=== PATIENT | female | born 1995 | race Caucasian/White ===

== ENCOUNTER 2019-11-21 10:37 | Emergency (ER) | payer SELFPAY ==
[2019-11-21 10:52] VITALS: BMI 28.3
[2019-11-21 10:56] VITALS: BP 149/98; PULSE 118; RESP 16; TEMP 37.8; O2SAT 99
[2019-11-21 12:39] VITALS: BP 141/58; PULSE 94; RESP 14; O2SAT 100
--- NOTE | 2019-11-21 12:39 | W.ED.GENADLT ---
HPI - General Adult General: Chief complaint: General Medical Stated complaint: ASKING FRO COVID AND STD TEST Time Seen by Provider: 11/21/19 11:19 Source: patient Mode of arrival: ambulatory Limitations: no limitations History of Present Illness: HPI narrative: low grade fever; anxiety; wanting tested for covid19 and HIV Review of Systems General: Reports: 10 or more systems reviewed and unremarkable except in HPI and below Const: Reports: fever(s) (low grade) and fatigue Psych: Reports: panic attacks, sleeping less and change in appetite REPLACED BY [facility] Female Reproductive History: Date of last menstrual period: 10/16/19 Physical Exam Const: COMMON NORMALS: no acute distress, patient oriented x3, no limitations and alert GENERAL APPEARANCE: cooperative and comfortable ORIENTATION/CONSCIOUSNESS: Yes awake, Yes oriented to person, Yes oriented to place and Yes oriented to time HENMT: COMMON NORMALS: normocephalic, atraumatic, external ears normal, EAC's normal, TM's normal bilaterally and Normal external nose present HEAD & SCALP: normal to inspection, normocephalic and atraumatic FACE & SINUS: normal facial exam, sinuses nontender and face symmetric NOSE: Normal external nose present, Normal nares present and No nasal discharge present EXTERNAL EAR: Yes external ears normal EXTERNAL AUDITORY CANAL: EAC's normal TYMPANIC MEMBRANE: TM's normal bilaterally MOUTH: Normal oral and palatal mucosa present, lip normal and tongue normal THROAT: posterior oropharynx normal, tonsils normal and uvula midline Eye: COMMON NORMALS: Equal, round and reactive pupils present, EOMs intact bilaterally and conjunctivae normal GENERAL EYE: appearance normal, both eyes and all related structures and normal light reflex EYELID: eyelids normal CONJUNCTIVA: Yes conjunctivae normal PUPIL: Yes Equal, round and reactive pupils present EOM: Yes EOM abnormal DIRECT OPHTHALMOSCOPY: Yes normal light reflex Neck/C-Spine: COMMON NORMALS: full ROM, no lymphadenopathy, supple, no meningeal signs, no JVD and Thyroid normal GENERAL: Yes normal visual inspection THYROID: Thyroid normal CERVICAL SPINE: Yes cervical ROM normal and Yes normal cervical lordosis Lymph: LYMPHATIC: no lymphadenopathy noted Chest: COMMONS NORMALS: normal inspection of the chest and normal palpation of entire chest wall Resp: COMMON NORMALS: normal respiratory effort, No retractions and clear to auscultation bilaterally AUSCULTATION: clear to auscultation bilaterally Cardio: COMMON NORMALS: no JVD, regular rate, regular rhythm, S1 normal heart sound present, S2 normal heart sound present, No gallops present (Cardio), No clicks present (Cardio), No murmurs present (Cardio), No rub (Cardio) and Peripheral pulses 2+ throughout RATE: regular rate RHYTHM: regular rhythm HEART SOUNDS: S1 normal heart sound present and S2 normal heart sound present PERIPHERAL PULSES: Peripheral pulses 2+ throughout GI: COMMON NORMALS: Normal to inspection, nondistended, normoactive bowel sounds present, Soft to palpation, non-tender and no masses PALPATION: Yes Soft to palpation : COMMON NORMALS: Yes no CVA tenderness and Yes normal external appearance BLADDER/KIDNEY EXAM: Yes no CVA tenderness Back/Pelvis: COMMON NORMALS: no CVA tenderness, thoracic and lumbar spine normal to inspection, no thoracic nor lumbar tenderness and thoraco-lumbar ROM normal Extremity: COMMON NORMALS: normal to inspection, full ROM, capillary refill normal, no joint enlargement, no clubbing, cyanosis or edema, no calf tenderness and no pedal edema GENERAL: Yes normal exam except as noted Neuro: COMMON NORMALS: patient oriented x3, moves all extremities, no focal motor deficits, no sensory deficits noted and gait normal SENSORIUM/ORIENTATION: Yes alert, Yes oriented to person, Yes oriented to place and Yes oriented to time MENINGEAL SIGNS: Yes no meningeal signs Psych: COMMON NORMALS: mental status grossly normal, Normal thought process present, cooperative, normal affect, speech normal and activity/motor behavior normal SPEECH: Yes normal speech THOUGHT PROCESS: Normal thought process present Skin: COMMON NORMALS: no rashes or lesions noted, no wounds and turgor normal GENERAL SKIN EXAM: no rashes or lesions noted and turgor normal Course ED course: Pt presents and is notable anxious. She has been researching on the internet and was around a friend who's mother is being tested for covid19 after being in [place]. Pt has had a low grade fever and sore throat. She also is fearful that she may have HIV since she has similar symptoms per what she has read on the internet. We discussed thoroughly that she is not high risk for HIV and that an ER is not where she should get tested. She will be going to the health dept for further testing. Will test for covid due to possible exposure with low grade fever and sore throat however. Reevaluation(s): Reevaluation #1: COVID send off; follow up with health dept for further std checking. Strep negative. Self quarantine until results of covid screening are back. [facility] follow up for anxiety medication evaluation. Time: 13:47 Vital Signs: Vital signs: Vital Signs Temperature 100.0 F H 11/21/19 10:56 Pulse Rate 94 11/21/19 12:39 Respiratory Rate 14 11/21/19 12:39 Blood Pressure 141/58 11/21/19 12:39 Pulse Oximetry 100 11/21/19 12:39 MDM - General Adult Lab Data: Labs: Lab Results 11/21/19 Range/Units 12:35 Group A Strep Rapi d Negative (Negative) Discharge Plan Discharge Prescriptions: No Action No Known Home Medications RF: 0 Coding Level of Care Code ED Explosives Handler for Nareshg Fwd Exam Comprehensive
[2019-11-21 12:50] LABS: Rapid Strep A Test Negative (Negative)
[2019-11-21 13:58] VITALS: BP 126/69; PULSE 93; RESP 16; O2SAT 98
[2019-11-23 07:46] LABS: Coronavirus Lab Test PTC NOT DETECTED
--- NOTE | 2019-11-23 15:14 | PC.NURSE ---
Contacted pt regarding her negative COVID result.
== END 2019-11-21 14:01 | disposition home or self-care (01) ==
PROVIDERS: Emergency Provider Nurse Practitioner Family
DX: R50.9 Fever, unspecified (principal); F41.9 Anxiety disorder, unspecified
CPT/HCPCS: 12345; 87081; 87635; 87880; 99282

== ENCOUNTER 2020-08-30 23:50 | Inpatient (IN) | payer MEDICAID, SELFPAY ==
[2020-08-31] VITALS (29 sets, daily range): BP systolic 108–154; BP diastolic 52–80; PULSE 68–90; RESP 15–18; TEMP 36.2–37.2; O2SAT 96–100; BMI 34.4
--- NOTE | 2020-08-31 00:29 | P.HP_ITS ---
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 She is a scheduled repeat . Her was scheduled for later this day at 7:00 AM. Approximately an hour prior to arrival to hospital, the patient believes that her water broke. As result she came into the hospital. Upon arrival she was found to have grossly ruptured membranes. She was also found to be dilated to 1 cm and having contractions. As result a decision was made to proceed with a section. Her has been otherwise unremarkable. Her blood type is a positive. She was found to be antibody positive for non clinically significant antibodies. On her first glucose screen she was 153, but she passed her 3-hour glucose screen. She was found to be group B strep positive. She is also rubella immune. She received her Tdap shot. And she is Covid negative. She signed a release form to have a tubal performed, but prior to the procedure she elected not to have it done. She was unsure if she really wanted to have permanent sterilization. Present Details Date of Last Menstrual Period: 10/16/19 Calculated Date of Delivery: 07/22/20 Gestational Age Based on Last Menstrual Period: 45 Review of Systems General: Reports: 10 or more systems reviewed and unremarkable except in HPI and below Const: Reports: fatigue; Denies: fever(s) Eyes: Denies: change in vision Card: Denies: chest pain GI: Reports: heartburn Musc: Reports: back pain Douglas/Lymph: Denies: easy bruising Medications/Allergies Home Medications Medication Instructions Recorded Confirmed Last Taken Type No Known Home Medications 11/21/19 11/21/19 Unknown History Allergies Allergy/AdvReac Type Severity Reaction Status Date / Time No Known Allergies Allergy Verified 11/21/19 10:58 Vitals/I&O/Wt Last Vital Signs Pulse 82 08/31/20 00:12 BP 132/67 08/31/20 00:12 Physical Exam Const: COMMON NORMALS: patient oriented x3 and alert HENMT: COMMON NORMALS: moist oral mucous membranes HEAD & SCALP: normal to inspection Chest: COMMONS NORMALS: normal inspection of the chest Resp: COMMON NORMALS: clear to auscultation bilaterally AUSCULTATION: clear to auscultation bilaterally Cardio: COMMON NORMALS: regular rate and regular rhythm RATE: regular rate RHYTHM: regular rhythm GI: INSPECTION: Yes normal to inspection and Yes other (Gravid) Extremity: COMMON NORMALS: normal to inspection GENERAL: Yes edema (Trace) Neuro: COMMON NORMALS: patient oriented x3, moves all extremities and no sensory deficits noted SENSORIUM/ORIENTATION: Yes alert Psych: COMMON NORMALS: mental status grossly normal Skin: COMMON NORMALS: no rashes or lesions noted GENERAL SKIN EXAM: no rashes or lesions noted A&P Assessment and plan (1) 39 weeks gestation of : We will proceed with a repeat section. We once again discussed the risks of the including risk of bleeding, infection, and damage to intra-abdominal organs. Dr. Gordon will be the patient's lead electrician. The on- call lead electrician is Dr. Salvador. He will be contacted if the infant has any troubles. Otherwise he can see the infant later in the morning. Status: Acute (2) Previous section: Status: Acute (3) Spontaneous rupture of membranes: Status: Acute (4) Group beta Strep positive: Status: Acute Attestations Medical Necessity Statement*: I anticipate routine and post C- section care. Coding Level of Care Code Acute Hospitalist Medical Director for Chg Fwd Diagnoses 39 weeks gestation of Z3A.39 Previous section Z98.891 Spontaneous rupture of membranes Group beta Strep positive B95.1
[2020-08-31] MEDS: lactated ringers 1,000 ML 999 ML IV (00:30)
[2020-08-31] MEDS: famotidine 20 mg/2 mL INJ IVP (00:31)
[2020-08-31] MEDS: metoclopramide 5 mg/mL SDV 2 mL 10 MG IVP (00:31)
[2020-08-31] MEDS: lactated ringers 1,000 ML 125 ML IV (00:31)
[2020-08-31] MEDS: citric acid-sodium citrate 30 mL UDC PO (00:31)
[2020-08-31 00:51] LABS: Hematocrit 33.7 % (37.0-47.0); Hemoglobin 11.3 g/dL (11.5-15.3); Mean Corpuscular HGB Conc 33.5 g/dL (30.0-36.0); Mean Corpuscular Hemoglobin 29.5 pg (28.0-34.0); Mean Platelet Volume 12.6 fL (7.4-10.4); Platelet Count 241 10^3/cmm (130-400); Red Blood Count 3.83 10^6/uL (4.1-5.3); Red Cell Distribution Width 13.5 % (12.1-15.1); White Blood Count 13.7 10^3/uL (4.0-10.0)
--- NOTE | 2020-08-31 01:27 | P.ANESUD_ITS ---
Pre-Anesthetic Update Pre-Anesthetic Assessment: Date of Surgery/Procedure: 08/31/20 Preop Aaliyah gnosis: IUP Any changes to Pre-Anesthetic Assessment?: No Last Intake: 1999 Labs Last 48hrs: Laboratory Results - last 48 hr 08/31/20 00:08 WBC 13.7 H RBC 3.83 L Hgb 11.3 L Hct 33.7 L MCV 88.0 MCH 29.5 MCHC 33.5 RDW 13.5 Plt Count 241 MPV 12.6 H Vitals: Pulse Rate 82 08/31/20 00:12 Blood Pressure 132/67 08/31/20 00:12 Exam: Pre-Anes Outpt Exam: alert, oriented x 3, clear to auscultation bilat erally and regular rate & rhythm Other Pertinent Information: Other Pertinent Information: Plan SAB, ASA IIE. Cardiac Studies: No Data to Display
--- NOTE | 2020-08-31 02:04 | P.OP_ITS ---
Operative Report Date of procedure: August 31, 2020 Pre-op Diagnosis: 39-week female with spontaneous rupture membranes and history of Post-op diagnosis: same Procedure Done: Repeat lower transverse section Specimens removed/disposition: 1. Healthy-appearing male with a weight of 7 pounds 1 ounce and Apgars of 8 and 8 2. Placenta with a three-vessel cord delivered intact Pathology: none sent Anesthesia: Other (Spinal) Estimated blood loss (mL): 500 Complications: None Condition: stable Disposition: floor (OB) Brief History: Refer to history and physical Procedure: The patient was brought back to the operating room where she was prepped and draped in usual sterile fashion. Anesthesia was found to be ad equate. A lower transverse skin incision was then made with a #10 blade. I then dissected down to the underlying subcutaneous tissue until arriving at the prerectal fascia. The fascia was then nicked with the scalpel bilaterally. The fascial incisions were then carried laterally with Ho scissors. Attention was then turned to the superior aspect of the incision which was grasped with fifi s and tented up away from the underlying rectus abdominis muscles. The muscles were then dissected away from the fascia manually, and later with Oh scissors. Attention was then turned to the inferior aspect of the incision, and the fascia was dissected away from the underlying muscle in similar fashion. The rectus abdominis muscles were then spread manually. The peritoneum was entered manually. Excellent visualization of the uterus was noted. A lower transverse uterine incision was then made with a #10 blade. Upon arriving at the intrauterine cavity, the uterine incision was then extended manually. The infant was noted to be in vertex position. The baby was delivered without difficulty. After delivery of the head, the mouth and nose were suctioned at the site of the incision. There was no meconium. There was a body cord x1. The remainder of the body was then delivered and placed on the abdomen. The cord was cut and clamped. The baby was then handed to the waiting nurse. The placenta was removed intact. The uterus was externalized. The intrauterine cavity was cleansed of any remaining debris. The uterine incision was reapproximated in 2 layers. The first layer was performed with 0 chromic in a running locked stitch. The second layer was an imbricating stitch also using 0 chromic. The uterus was replaced into the abdomen. The peritoneum was then irrigated with warm saline. I reexamined the uterine incision and found it to be hemostatic. The rectus abdominis muscles were then reapproximated using 0 chromic in a running stitch. The fascia was then reapproximated using 0 Vicryl in running stitch. The subcutaneous tissue was reapproximated using 0 chromic in a running stitch. The skin was reapproximated using danelle. A sterile dressing was placed. All counts were correct x2. Both the mother and baby were in stable condition.
--- NOTE | 2020-08-31 02:05 | P.PCN_ITS ---
PACU note PACU note: VSS, Good respiratory effort, report to GEAR ROLLER Post-Anesthesia Exam: awake
--- NOTE | 2020-08-31 02:05 | PM.PACU ---
PACU note PACU note: VSS, Good respiratory effort, report to SPRING INSPECTOR Post-Anesthesia Exam: awake
[2020-08-31] MEDS: ketorolac 30 mg/mL INJ IVP ×3 (03:01→17:18)
[2020-08-31] MEDS: ondansetron 2 mg/ML SDV 2 mL 4 MG IVP (03:01)
[2020-08-31] MEDS: promethazine 25 mg/mL SDV 1 mL IM (03:49)
--- NOTE | 2020-08-31 09:04 | PC.SOCIAL ---
Envelope Maker called OB Dept, spoke to Rachelle, states patient doesn't have SS needs at this time. Will see patient if anything changes.
[2020-08-31] MEDS: docusate sodium 100 mg Capsule PO ×2 (10:00→17:19)
[2020-08-31] MEDS: ferrous sulfate EC 325 mg Tablet PO ×2 (10:00→17:19)
--- NOTE | 2020-08-31 13:41 | PC.NURSE ---
PATIENT STATES SHE PASSED GAS.
[2020-08-31 16:05] LABS: Hematocrit 37.5 % (37.0-47.0); Hemoglobin 12.1 g/dL (11.5-15.3); Mean Corpuscular HGB Conc 32.3 g/dL (30.0-36.0); Mean Corpuscular Hemoglobin 28.7 pg (28.0-34.0); Mean Corpuscular Volume 88.9 fL (81-99); Mean Platelet Volume 12.8 fL (7.4-10.4); Platelet Count 240 10^3/cmm (130-400); Red Blood Count 4.22 10^6/uL (4.1-5.3); Red Cell Distribution Width 13.6 % (12.1-15.1); White Blood Count 20.1 10^3/uL (4.0-10.0)
[2020-08-31] MEDS: ibuprofen 800 mg tablet PO (21:20)
[2020-09-01 03:30] VITALS: BP 110/67; PULSE 93; RESP 17; TEMP 37; O2SAT 97
[2020-09-01] MEDS: prenatal vitamin Capsule 1 CAP PO (07:32)
[2020-09-01] MEDS: ferrous sulfate EC 325 mg Tablet PO ×2 (07:32→17:09)
[2020-09-01] MEDS: ibuprofen 800 mg tablet PO ×3 (07:33→21:01)
[2020-09-01] MEDS: docusate sodium 100 mg Capsule PO ×2 (07:33→17:09)
[2020-09-01] MEDS: HYDROcodone-acetaminophen 5-325 mg Tablet PO ×3 (07:33→23:09)
[2020-09-01 10:00] VITALS: BP 99/68; PULSE 90; RESP 16; TEMP 36.7; O2SAT 99
[2020-09-01 16:13] VITALS: BP 125/82; PULSE 92; RESP 17; TEMP 36.8
[2020-09-01 21:00] VITALS: BP 124/80; PULSE 72; RESP 16; TEMP 36.8
[2020-09-01 23:56] VITALS: BP 124/80; PULSE 72; RESP 16; TEMP 36.8
== END 2020-09-01 23:57 | disposition home or self-care (01) | DRG 788 ==
PROVIDERS: Admitting Provider Family Medicine; PCP Family Medicine; Visit Provider Family Medicine
PROC: 10D00Z1 Extraction of Products of Conception, Low, Open Approach (ICD-10-PCS; CPT 59514; principal; 2020-08-31 01:00)
DX: O34.211 Maternal care for low transverse scar from previous cesarean delivery (principal); Z3A.39 39 weeks gestation of pregnancy; Z37.0 Single live birth; Z87.891 Personal history of nicotine dependence; O99.824 Streptococcus B carrier state complicating childbirth; O69.1XX0 Labor and delivery complicated by cord around neck, with compression, not applicable or unspecified; O99.344 Other mental disorders complicating childbirth; F41.9 Anxiety disorder, unspecified
CPT/HCPCS: 12345; 36415; 59025; 85027; 96372; 98960; 99211; J0690; J1885; J2274; J2405; J2550; J2765; J3490

== ENCOUNTER 2021-04-17 09:06 | Emergency (ER) | payer MEDICAID, SELFPAY ==
[2021-04-17 09:11] VITALS: BP 131/109; PULSE 92; RESP 20; TEMP 36.7; O2SAT 99; BMI 31.2
--- NOTE | 2021-04-17 09:17 | ED_ITS ---
HPI - Abdominal Pain General: Chief Complaint: Abdominal Pain Stated Complaint: LEFT BACK/FLANK PAIN Time Seen by Provider: 04/17/21 09:10 History of Present Illness: HPI narrative: 25-year-old female presents emergency room complaining of left flank pain that began suddenly this morning. She woke up this morning felt the urge to urinate and had severe left flank pain she was able to urinate did not notice any hematuria sometime after that the flank pain resolved and she has very little discomfort now. She had some nausea with it but no vomiting or diarrhea. Nurses note states she was tearful in the triage but when I went seen the patient the pain at Burdi much completely resolved and she did not have any real discomfort until I did Oscar's punch on her left side that was only mild pain at this time. She has no other symptoms no history of fever sweats chills no history of previous stones or pyelonephritis. She denies past potential for being . She denies any history of gynecological issues. MD elicited complaint: flank pain Pertinent past history: none Onset (ago): hour(s) Pain Consistency: intermittent and now resolved Location: L flank Severity: severe Quality: stabbing Radiation: none Migration to: no migration Exacerbating factors: nothing Relieving factors: nothing Associated Symptoms: Denies anorexia, belching, bloating, change in bowel habits, change in stool character, chills, coffee ground emesis, constipation, GI cramping, diarrhea, dyspepsia, dysuria, excessive flatus, fever(s), heartburn, hematochezia, hematuria, hematemesis, fecal incontinence, loose stools, melena, nausea, poor appetite, syncope and vomiting Related Data: Date of Last Menstrual Period: 03/18/21 Review of Systems Const: Denies: fever(s) or chills ENMT: Denies: throat pain, ear or mastoid pain, nasal discharge or nasal congestion Card: Denies: syncope Resp: Denies: dyspnea, productive cough or non-productive cough GI: Denies: nausea, vomiting, hematemesis, coffee ground emesis, heartburn, diarrhea, constipation, bloating, GI cramping, belching, excessive flatus, fecal incontinence, change in bowel habits, change in stool character, hematochezia or melena : Denies: dysuria or hematuria Skin/Breast: Denies: rash or pruritus [facility] ED Female Reproductive History: Date of last menstrual period: 03/18/21 Physical Exam Const: COMMON NORMALS: no acute distress GENERAL APPEARANCE: cooperative and comfortable ORIENTATION/CONSCIOUSNESS: Yes awake, Yes oriented to person, Yes oriented to place and Yes oriented to time HENMT: COMMON NORMALS: normocephalic, atraumatic and hearing grossly normal bilaterally HEAD & SCALP: normocephalic and atraumatic Resp: COMMON NORMALS: normal respiratory effort, No retractions, No use of accessory muscles and clear to auscultation bilaterally AUSCULTATION: clear to auscultation bilaterally Cardio: COMMON NORMALS: regular rate, regular rhythm and No murmurs present (Cardio) RATE: regular rate RHYTHM: regular rhythm GI: COMMON NORMALS: Soft to palpation and No hepatosplenomegaly present AUSCULTATION: Yes normoactive bowel sounds PALPATION: Yes Soft to palpation, No Tenderness to palpation present (GI), No Guarding due to palpation present (GI) and Yes No hepatosplenomegaly present : BLADDER/KIDNEY EXAM: Yes CVA tenderness Back/Pelvis: GENERAL BACK: Yes CVA tenderness CVA tenderness: left Extremity: COMMON NORMALS: normal to inspection, capillary refill normal, no clubbing, cyanosis or edema, no calf tenderness and no pedal edema Neuro: SENSORIUM/ORIENTATION: Yes oriented to person, Yes oriented to place and Yes oriented to time Skin: COMMON NORMALS: no rashes or lesions noted GENERAL SKIN EXAM: no rashes or lesions noted Course Vital Signs: Vital signs: Vital Signs Temperature 98.1 F 04/17/21 09:11 Pulse Rate 72 04/17/21 11:01 Respiratory Rate 15 04/17/21 11:01 Blood Pressure 122/71 04/17/21 11:01 Pulse Oximetry 99 04/17/21 11:01 MDM - Abdominal Pain MDM Narrative: Medical decision making narrative: CT reviewed. 4.6 mm stone at the left UVJ pain is well controlled discharge home with hydrocodone and promethazine. To strain urine if has any worsening or change problems return. Lab Data: Labs: Lab Results 04/17/21 04/17/21 04/17/21 09:27 09:27 09:27 WBC 7.4 10^3/uL 10^3/ uL (4.0-10.0) RBC 4.84 10^6/uL 10^6 /uL (4.1-5.3) Hgb 14.6 g/dL g/dL (11.5-15.3) Hct 43.4 % % (37.0-47.0) MCV 89.7 fl fl (81-99) MCH 30.2 pg pg (28.0-34.0) MCHC 33.6 g/dL g/dL (30.0-36.0) RDW 14.8 % % (12.1-15.1) Plt Count 242 10^3/cmm 10^3 /cmm (130-400) MPV 11.1 fL H fL (7.4-10.4) Neut % (Auto) 52.0 % % Lymph % (Auto) 33.8 % % Roberts % (Auto) 8.2 % % Eos % (Auto) 5.2 % % Baso % (Auto) 0.5 % % Neut # (Auto) 3.83 10^3/uL 10^3 /uL (1.8-7.7) Lymph # (Auto) 2.5 10^3/uL 10^3/ uL (0.8-4.8) Roberts # (Auto) 0.6 10^3/uL 10^3/ uL (0.2-0.9) Eos # (Auto) 0.4 10^3/uL 10^3/ uL (0.0-0.8) Baso # (Auto) 0.0 10^3/uL 10^3/ uL (0.0-0.1) Nucleated RBC % (a uto) 0 % % Nucleated RBCs # 0.0 /100WBC /100W BC Sodium 139 mmol/L mmol/L (136-145) Potassium 4.2 mmol/L mmol/L (3.5-5.1) Chloride 105 mmol/L mmol/L (98-107) Carbon Dioxide 21 mmol/L L mmol/ L (22-29) Anion Gap 17.2 (5-19) BUN 12 mg/dL mg/dL (6-20) Creatinine 0.6 mg/dL mg/dL (0.5-0.9) GFR Calculation 121.8 mL/min mL/m in (90-130) Glucose 99 mg/dL mg/dL (65-115) Calculated Osmolal ity 288 mOsm/kg mOsm/ kg (285-295) Calcium 8.3 mg/dL L mg/dL (8.5-10.5) HCG, Qual Negative (Negative) Urine Color Urine Appearance Urine pH Ur Specific Gravit y Urine Protein Urine Glucose (UA) Urine Ketones Urine Blood Urine Nitrate Urine Bilirubin Urine Urobilinogen Ur Leukocyte Margoth ase Urine RBC Urine WBC Ur Squamous Epith Cells Amorphous Sediment Urine Bacteria Urine Mucus 04/17/21 09:37 WBC RBC Hgb Hct MCV MCH MCHC RDW Plt Count MPV Neut % (Auto) Lymph % (Auto) Roberts % (Auto) Eos % (Auto) Baso % (Auto) Neut # (Auto) Lymph # (Auto) Roberts # (Auto) Eos # (Auto) Baso # (Auto) Nucleated RBC % (a uto) Nucleated RBCs # Sodium Potassium Chloride Carbon Dioxide Anion Gap BUN Creatinine GFR Calculation Glucose Calculated Osmolal ity Calcium HCG, Qual Urine Color Yellow (Yellow) Urine Appearance Clear (CLEAR) Urine pH 5 (5-7) Ur Specific Gravit y 1.028 (1.005-1.030) Urine Protein Neg (Negative) Urine Glucose (UA) Norm (Normal) Urine Ketones Negative (Negative) Urine Blood 3+ H (Negative) Urine Nitrate Negative (Negative) Urine Bilirubin Neg (Negative) Urine Urobilinogen Norm mg/dL mg/dL (Negative) Ur Leukocyte Margoth ase Negative (Negative) Urine RBC 25-40 /hpf H /hpf (0-2) Urine WBC 0-4 /hpf H /hpf (0-5) Ur Squamous Epith Cells 15-25 /hpf H /hpf (0-5) Amorphous Sediment Not Reportable Urine Bacteria 1+ /hpf H /hpf (NONE) Urine Mucus 2+ /hpf /hpf Discharge Plan Discharge Patient Disposition: Home Clinical Impression: Calculus of kidney Condition: Stable Prescriptions: New hydrocodone-acetaminophen 5-325 mg tablet 1 tab PO Q6H PRN (Reason: pain) Qty: 15 RF: 0 promethazine 25 mg tablet 25 mg PO Q6H PRN (Reason: nausea and vomiting) Qty: 20 RF: 0 Discharge Orders: Discharge ED (Routine); Ordered 04/17/21 Ordered By: Zeyad Tellez Referrals: Bhupinder Beckham MD [Primary Care Provider] - Discharge Diet: Usual diet Discharge Activity: Increase activity as tolerated Patient Instructions: Opioid Safety Activity Restrictions/Additional Instructions: Strain urine to collect stone. fixed income portfolio manager will make arrangements for you to follow-up with Dr. Duncan. If pain becomes uncontrollable return to the emergency room. Stand Alone Forms: Work/School Release Coding Level of Care Code ED Construction Carpenter for Sharyn Fwd Exam Comprehensive
[2021-04-17 09:34] LABS: Basophils % 0.5 %; Eosinophils # 0.4 10^3/uL (0.0-0.8); Eosinophils % 5.2 %; Hematocrit 43.4 % (37.0-47.0); Hemoglobin 14.6 g/dL (11.5-15.3); Lymphocytes # 2.5 10^3/uL (0.8-4.8); Lymphocytes % 33.8 %; Mean Corpuscular HGB Conc 33.6 g/dL (30.0-36.0); Mean Corpuscular Hemoglobin 30.2 pg (28.0-34.0); Mean Corpuscular Volume 89.7 fl (81-99); Mean Platelet Volume 11.1 fL (7.4-10.4); Monocytes # 0.6 10^3/uL (0.2-0.9); Monocytes % 8.2 %; Neutrophils # 3.83 10^3/uL (1.8-7.7); Nucleated Red Blood Cells % 0 %; Platelet Count 242 10^3/cmm (130-400); Red Blood Count 4.84 10^6/uL (4.1-5.3); Red Cell Distribution Width 14.8 % (12.1-15.1); White Blood Count 7.4 10^3/uL (4.0-10.0)
--- NOTE | 2021-04-17 09:39 | CT_ITS ---
WS: [id number] CT ABDOMEN PELVIS TECHNIQUE: Noncontrast CT of the abdomen and pelvis with coronal and sagittal reformatted images. CLINICAL INFORMATION: flank pain COMPARISON: None. DLP: 1312.[address] scans at [facility] use at least one of these dose optimization techniques: automated e xposure control; mA and/or kV adjustment per patient size (includes targeted exams where dose is matc hed to clinical indication); or iterative reconstruction. FINDINGS: No hydronephrosis in either kidney. Adrenal glands are normal. Distal left ureteral calculus at the U VJ measuring approximately 4.6 mm with minimal ureterectasis. Mild left pelvocaliectasis. No obstruct ing right renal or ureteral calculi. IUD in place. Noncontrast liver is normal. Normal gallbladder. Noncontrast spleen is normal. Normal G E junction. Tiny noncalcified nodule left lower lobe measuring 3.8 mm. Noncontrast liver is normal. Normal noncontrast gallbladder and spleen. Noncontrast pancreas is scar l. Normal caliber abdominal aorta. Tiny fat-containing umbilical hernia. CT/CT kidney stone [id number] IMPRESSION: 1. 4.6 mm obstructing left distal ureteral calculus at the UVJ. Mild left uret erectasis and pelvocaliectasis. No hydronephrosis. 2. No hydronephrosis in right kidney. 3. IUD in place. 4. Tiny noncalcified 3.8 mm nodule left lower lobe. 5. No other suspicious findings. Notified Zeyad Tellez DO at 04/17/2021 10:43 AM.
[2021-04-17 10:03] LABS: HCG, Serum Qual Negative (Negative)
[2021-04-17 10:07] LABS: Anion Gap 17.2 (5-19); Blood Urea Nitrogen 12 mg/dL (6-20); Calcium 8.3 mg/dL (8.5-10.5); Carbon Dioxide 21 mmol/L (22-29); Chloride 105 mmol/L (98-107); Glomerular Filtration Rate 121.8 mL/min (90-130); Glucose 99 mg/dL (65-115); Osmolality Calculated 288 mOsm/kg (285-295); Potassium 4.2 mmol/L (3.5-5.1); Sodium 139 mmol/L (136-145)
[2021-04-17 10:31] LABS: Add Urine Microscopic? YES; Bacteria Urine 1+ /hpf; Bilirubin Urine Neg (Negative); Blood Urine 3+ (Negative); Glucose Urine UA Norm (Normal); Ketones Urine Negative (Negative); Leukocyte Esterase Urine Negative (Negative); Mucus Urine 2+ /hpf; Nitrate Urine Negative (Negative); Protein Urine Neg (Negative); RBC Urine 25-40 /hpf (0-2); Specific Gravity, Urine 1.028 (1.005-1.030); Urine Appearance Clear (CLEAR); Urine Color Yellow (Yellow); Urobilinogen Urine Norm (Negative); WBC Urine 0-4 /hpf (0-5); pH Urine 5 (5-7)
[2021-04-17 10:32] LABS: Squamous Epithelial Cell Urine 15-25 /hpf (0-5)
--- NOTE | 2021-04-17 10:36 | PC.PHAR ---
pt states she takes no rx or otc medications-pt states she has a implant for her control but is unsure of the name of the implant
[2021-04-17 11:01] VITALS: BP 122/71; PULSE 72; RESP 15; O2SAT 99
--- NOTE | 2021-04-17 16:02 | PC.SOCIAL ---
Referral received from Dr Wolff to see Dr Duncan. Spoke with Erwin and provided information. They will review and call patient with appt.
--- NOTE | 2021-04-24 15:53 | DCPLANNER ---
Patient has a follow up appointment scheduled for , April 25, 2021 at 2:[address] Duncan. Clinic will call patient with appointment information.
--- NOTE | 2021-04-26 13:28 | DCPLANNER ---
Patient had a follow up appointment scheduled for 04.25.[address] Duncan - patient did attend appointment.
== END 2021-04-17 11:02 | disposition home or self-care (01) ==
PROVIDERS: Emergency Provider Family Medicine; PCP Family Medicine
DX: N20.0 Calculus of kidney (principal)
CPT/HCPCS: 74176; 80048; 81001; 84703; 85025; 99283

== ENCOUNTER 2021-04-25 12:54 | Outpatient (CLI) | payer MEDICAID, SELFPAY ==
--- NOTE | 2021-04-25 12:45 | XR_ITS ---
WS: [id number] KUB, AP view, 04/25/2021 Clinical Data: stones Comparison: KUB, 10/07/2017. Findings: No abnormal intraabdominal masses or calcifications are seen. There is no dilatated small bowel or ev idence of obstruction. There is an IUD in the region of the uterus. The bladder is partly full. XR/XR KUB [id number] Impression: Negative KUB.
== END 2021-04-25 12:55 | disposition home or self-care (01) ==
LOC: RAD 12:58
PROVIDERS: PCP Family Medicine; Visit Provider Urology
DX: N20.0 Calculus of kidney (principal)
CPT/HCPCS: 74018; 81003

== ENCOUNTER 2021-05-08 15:23 | Outpatient (CLI) | payer MEDICAID, SELFPAY ==
--- NOTE | 2021-05-08 15:30 | XR_ITS ---
WS: [id number] XR KUB [id number] REASON FOR EXAM: left ureteral calculus FINDINGS: On the CT scan of 04/17/2021 and on the abdomen film of 04/25/2021 I can only identify 2 calcificatio ns in the left pelvis. It appears that the more medial calcification is a distal left ureteral calcul us on the CT scanner by report/images. Both of these calcifications are again identified on the current examination in the left pelvis and a re unchanged compared to the previous study of 04/25/2021. No other potential urinary tract calculi a re identified. XR/XR KUB [id number] IMPRESSION: Left pelvic calcifications are unchanged. Previous CT images report/images valente cates the more medial of these calcifications was a distal left ureteral calcul us.
== END 2021-05-08 15:24 | disposition home or self-care (01) ==
LOC: RAD 15:27
PROVIDERS: PCP Family Medicine; Visit Provider Urology
DX: N20.1 Calculus of ureter (principal)
CPT/HCPCS: 74018; 81003

== ENCOUNTER 2021-05-29 15:22 | Outpatient (CLI) | payer MEDICAID, SELFPAY ==
--- NOTE | 2021-05-29 15:43 | XR_ITS ---
WS: [id number] XR KUB [id number] REASON FOR EXAM: LEFT URETERAL CALCULUS FINDINGS: Unremarkable bowel gas pattern. No free air or retroperitoneal air. No intrarenal calculi. The distal left ureteral calculus, the most medial of the 2 left pelvic calcifications, is unchanged in position. No new findings. XR/XR KUB [id number] IMPRESSION: Distal left ureteral calculus is unchanged in position.
== END 2021-05-29 15:23 | disposition home or self-care (01) ==
PROVIDERS: PCP Family Medicine; Visit Provider Urology
DX: N20.1 Calculus of ureter (principal)
CPT/HCPCS: 74018; 81003

== ENCOUNTER 2021-08-02 17:17 | Emergency (ER) | payer MEDICAID, SELFPAY ==
[2021-08-02 17:29] VITALS: BP 122/77; PULSE 95; RESP 16; TEMP 37.3; O2SAT 100
--- NOTE | 2021-08-02 17:53 | ED_ITS ---
HPI - Back Pain/Injury General: Chief Complaint: Back Pain/Injury Stated Complaint: back pain Time Seen by Provider: 08/02/21 17:47 History of Present Illness: 25-year-old female comes in today with complaints of left flank pain radiating to the left groin. Patient in March 2021 was diagnosed with a left ureteral kidney stone. Patient has been unable to follow- up after initial treatment with Dr. Duncan. Patient is concerned that she may have developed a urinary tract infection. Patient denies any fever or chills. Patient does report the pain down in her left groin. Review of the record does note that patient had a CT scan that did show a ureteral stone at that time. Patient appears well. Patient appears in mild to no pain. Patient has IUD in place for control. 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 History of recent travel: No Female Reproductive History: Date of last menstrual period: 03/18/21 Physical Exam Const: COMMON NORMALS: alert HENMT: COMMON NORMALS: normocephalic HEAD & SCALP: normocephalic Neck/C-Spine: COMMON NORMALS: full ROM Resp: COMMON NORMALS: normal respiratory effort and clear to auscultation bilaterally AUSCULTATION: clear to auscultation bilaterally Cardio: COMMON NORMALS: regular rate and regular rhythm RATE: regular rate RHYTHM: regular rhythm GI: COMMON NORMALS: Soft to palpation PALPATION: Yes Soft to palpation and Yes Tenderness to palpation present (GI) (Left lower abdomen/pelvic area) : COMMON NORMALS: Yes no CVA tenderness BLADDER/KIDNEY EXAM: Yes no CVA tenderness Back/Pelvis: COMMON NORMALS: no CVA tenderness Extremity: COMMON NORMALS: full ROM Neuro: SENSORIUM/ORIENTATION: Yes alert Psych: COMMON NORMALS: mental status grossly normal Skin: COMMON NORMALS: no rashes or lesions noted GENERAL SKIN EXAM: no rashes or lesions noted Course Vital Signs: Vital signs: Vital Signs Temperature 99.1 F 08/02/21 17:29 Pulse Rate 85 08/02/21 19:15 Respiratory Rate 20 H 08/02/21 19:15 Blood Pressure 112/75 08/02/21 19:15 Pulse Oximetry 97 08/02/21 19:15 MDM - Back Pain/Injury Medical Decision Making 25-year-old female comes in today for complaints of left flank pain radiating into the groin. Patient reports she was diagnosed with a left ureter kidney stone back in March and she had followed up with the urologist for the about 2 months but had to cancel an appointment in June but then was unable to get it rescheduled until late August. Patient reports that the pain has exacerbated that time making it unbearable. Patient was worried for a infection. On exam abdomen soft with some lower left abdominal/pelvic pain. No flank tenderness was noted. Respirations were even lungs are clear to auscultation. Vital signs are normal. Differential diagnosis includes ureteral calculi, renal calculi, pyelonephritis, UTI. Urine was clear. hCG was negative. CT noted a distal left ureter stone without any signs of inflammation or hydronephrosis. We will continue patient on present plan, case management will be consulted to see if we can get the appointment moved up due to patient's increased pain. Patient reported understanding and agreed to plan and need for follow-up. Labs Radiology Impressions Abdomen/Pelvis CT 08/02/21 17:53 IMPRESSION: 1. Distal left ureter 5 mm renal stone. No hydronephrosis. 2. Possible mild terminal ileitis. Correlate clinically. 3. Indeterminate 4 mm left basilar nodule. Follow-up according to Fleischner criteria. Laboratory Results HCG, Qual Negative (Negative) 08/02/21 17:53 Urine Color Yellow (Yellow) 08/02/21 17:53 Urine Appearance Clear (CLEAR) 08/02/21 17:53 Urine pH 5 (5-7) 08/02/21 17:53 Ur Specific Morris 1.015 (1.005-1.030) 08/02/21 17:53 Urine Protein Neg (Negative) 08/02/21 17:53 Urine Glucose (UA) Norm (Normal) 08/02/21 17:53 Urine Ketones Negative (Negative) 08/02/21 17:53 Urine Blood Neg (Negative) 08/02/21 17:53 Urine Nitrate Negative (Negative) 08/02/21 17:53 Urine Bilirubin Neg (Negative) 08/02/21 17:53 Urine Urobilinogen Norm mg/dL (Negative) 08/02/21 17:53 Ur Leukocyte Esterase Negative (Negative) 08/02/21 17:53 Discharge Plan Discharge Patient Disposition: Home Clinical Impression: Left ureteral calculus Condition: Stable Prescriptions: New hydrocodone-acetaminophen 5-325 mg tablet 1 tab PO Q6H PRN (Reason: pain (scale score 7-10)) Qty: 14 0RF ondansetron 4 mg tablet,disintegrating 4 mg PO Q8H PRN (Reason: nausea and vomiting) Qty: 10 0RF Discharge Orders: Discharge ED (Routine); Ordered 08/02/21 Ordered By: Leonid Bautista Referrals: Bhupinder Beckham MD [Primary Care Provider] - Discharge Diet: Usual diet Discharge Activity: Increase activity as tolerated Patient Instructions: Ureteral Stones (ED), Opioid Safety Activity Restrictions/Additional Instructions: Home and rest. Activity as tolerated. Monitor for fever greater than 100.4. Monitor for worsening pain and discomfort. Return to the ER for these worsening symptoms. Follow-up with urologist for further treatment. Case management will contact you in regards to follow-up appointment with the urologist. Coding Level of Care Code ED Floor Representative for Sharyn Fwd Exam Comprehensive
--- NOTE | 2021-08-02 17:53 | CTR_ITS ---
PROCEDURE INFORMATION: Exam: CT Abdomen And Pelvis Without Contrast Exam date and time: 08/02/2021 6:35 PM Age: 25 years old Clinical indication: Abdominal pain; Flank; Left; Prior surgery; Surgery date: 6+ months; Surgery type: ; Additional info: Left flank pain, HX of renal stone TECHNIQUE: Imaging protocol: Computed tomography of the abdomen and pelvis without contrast. Radiation optimization: All CT scans at this facility use at least one of these dose optimization techniques: automated exposure control; mA and/or kV adjustment per patient size (includes targeted exams where dose is matched to clinical indication); or iterative reconstruction. COMPARISON: CR XR KUB [id number] 05/29/2021 4:06 PM RADIATION DOSE METRICS: Total DLP (mGy-cm): 1309.04 FINDINGS: Lungs: A small 4 mm nodular density is present in the basal left lower lobe. The visualized lung bases are otherwise clear. Heart: The heart is normal in size. Liver: Normal. No mass. Gallbladder and bile ducts: Normal. No calcified stones. No ductal dilation. Pancreas: Normal. No ductal dilation. Spleen: Normal. No splenomegaly. Adrenal glands: Normal. No mass. Kidneys and ureters: A 5 mm renal stone is present in the distal left ureter just proximal to the UVJ. No hydronephrosis. The right kidney appears normal. Stomach and bowel: Mild wall thickening is observed in the terminal ileum. However, the terminal ileum is not fully distended in limits evaluation. No intestinal obstruction. Appendix: The appendix is normal. Intraperitoneal space: Unremarkable. No free air. No significant fluid collection. Vasculature: Unremarkable. No abdominal aortic aneurysm. Lymph nodes: Unremarkable. No enlarged lymph nodes. Urinary bladder: Unremarkable as visualized. Reproductive: The uterus and ovaries appear normal. An IUD is present in the uterus. Bones/joints: Unremarkable. No acute fracture. Soft tissues: Unremarkable. CT/CT kidney stone [id number] IMPRESSION: 1. Distal left ureter 5 mm renal stone. No hydronephrosis. 2. Possible mild terminal ileitis. Correlate clinically. 3. Indeterminate 4 mm left basilar nodule. Follow-up according to Fleischner criteria.
[2021-08-02 18:10] LABS: HCG Qualitative Urine. Negative (Negative)
[2021-08-02 19:15] VITALS: BP 112/75; PULSE 85; RESP 20; O2SAT 97
[2021-08-02 19:30] LABS: Add Urine Microscopic? NO; Charge for UA Resulting for Rev
[2021-08-02 19:40] LABS: Bilirubin Urine Neg (Negative); Blood Urine Neg (Negative); Glucose Urine UA Norm (Normal); Ketones Urine Negative (Negative); Leukocyte Esterase Urine Negative (Negative); Nitrate Urine Negative (Negative); Protein Urine Neg (Negative); Specific Gravity, Urine 1.015 (1.005-1.030); Urine Appearance Clear (CLEAR); Urine Color Yellow (Yellow); Urobilinogen Urine Norm (Negative); pH Urine 5 (5-7)
[2021-08-02] MEDS: HYDROcodone-acetaminophen 5-325 mg Tablet 1 TAB PO (19:54)
[2021-08-02] MEDS: ondansetron 4 MG Tablet PO (19:54)
[2021-08-02 20:00] VITALS: BP 112/75; PULSE 89; RESP 20; O2SAT 98
--- NOTE | 2021-08-03 10:37 | DCPLANNER ---
Addendum entered by Catrina Charles 08/07/21 08:35: Patient had a follow up appointment scheduled for 08.07.[address] Duncan at urology - patient did attend appointment. Original Note: mobile development manager had message to schedule a follow up appointment for patient with urology. mobile development manager sent patients information to the front staff at urology for review. Patients information will be printed and reviewed. Clinic will call patient with appointment information.
== END 2021-08-02 20:03 | disposition home or self-care (01) ==
PROVIDERS: Emergency Medicine; Emergency Provider Nurse Practitioner Family; PCP Family Medicine
DX: N20.1 Calculus of ureter (principal); F17.200 Nicotine dependence, unspecified, uncomplicated
CPT/HCPCS: 74176; 81003; 81025; 99283; Q0162

== ENCOUNTER 2021-08-07 07:03 | Outpatient (CLI) | payer MEDICAID, SELFPAY ==
--- NOTE | 2021-08-07 07:13 | XR_ITS ---
WS: [id number] KUB, AP view, 08/07/2021 Clinical Data: LEFT URETERAL CALCULUS Comparison: KUB, 05/29/2021. CT abdomen and pelvis, 08/02/2021. Findings: No abnormal intraabdominal masses are seen. There is no dilatated small bowel or evidence of obstruct ion. There are 2 calcifications in the left side of the true pelvis, one of which may be the distal left f emoral calculus. There is an IUD in the region of the uterus. The bladder is full. XR/XR KUB [id number] Impression: Probable distal left ureteral calculus.
== END 2021-08-07 07:04 | disposition home or self-care (01) ==
LOC: RAD 07:04
PROVIDERS: PCP Family Medicine; Visit Provider Urology
DX: N20.1 Calculus of ureter (principal)
CPT/HCPCS: 74018; 81003

== ENCOUNTER 2021-08-08 05:52 | Day surgery (SDC) | payer MEDICAID, SELFPAY ==
[2021-08-07 13:43] VITALS: BMI 29.9
--- NOTE | 2021-08-08 06:04 | SC_ITS ---
WS: [id number] C-arm fluoroscopy for left ureteral stent. Clinical Data: Refractory left distal ureteral stone Comparison: None. Findings: Dr. Duncan placed a left ureteral stent into the left renal pelvis. SC/C-arm FL for Urology Impression: Left ureteral stent.
[2021-08-08 06:19] VITALS: BP 129/71; PULSE 88; RESP 18; TEMP 36.8; O2SAT 99
[2021-08-08] MEDS: sodium chloride 0.9% 1,000 ML 30 ML IV (06:34)
--- NOTE | 2021-08-08 06:50 | P.HPUD_ITS ---
Surgery/Procedure H&P Update DATE OF PROCEDURE: August 08, 2021 DATE H&P PERFORMED: 08/07/21 H&P UPDATE INFORMATION: I have reviewed H&P completed within last 30 days, I have examined patient prior to procedure, No changes to prior documentation and H&P is in [facility] EMR on date indicated PREOP DIAGNOSIS: Refractory left distal ureteral stone PLANNED PROCEDURE: Operation Date: 08/08/21 07:10 Proposed Procedures p Cystoscopy 05332 mod 26/23656/86663/n20.1(Not Applicable) - Chalino Duncan MD s Retrograde Pyelogram(Left) - MD chen Stubbs Ureteroscopy(Left) - MD chen Stubbs Laser Lithotripsy(Left) - MD chen Stubbs Ureteral Stent Placement(Left) - Chalino Duncan MD
[2021-08-08] MEDS: midazolam 1 mg/mL INJ 2 mL 2 MG IVP (06:51)
[2021-08-08] MEDS: levofloxacin-dextrose 5 % 500 MG/100 ML PREMIX 100 MG IV (06:55)
--- NOTE | 2021-08-08 07:08 | P.ANESASSM_ITS ---
Pre-Anesthetic Assessment Height/Weight: Height 1.65 m Weight 81.647 kg Temp Pulse Resp BP Pulse Ox 98.3 F 88 18 129/71 99 08/08/21 06:19 08/08/21 06:19 08/08/21 06:19 08/08/21 06:19 08/08/21 06:19 Preop Diagnosis: Refractory left distal ureteral stone Operation Date: 08/08/21 07:10 Proposed Procedures p Cystoscopy 42063 mod 26/73005/71129/n20.1(Not Applicable) - Chalino Duncan MD s Retrograde Pyelogram(Left) - Chalino Duncan MD s Ureteroscopy(Left) - MD chen Stubbs Laser Lithotripsy(Left) - Chalino Duncan MD s Ureteral Stent Placement(Left) - Chalino Duncan MD Familial anesthetic complications: None Was Beta Cayden taken within 24 hours: N/A Was Clonidine taken within 24 hours: N/A Last intake: Intake Last Liquid Date 08/07/21 Last Liquid Time 23:59 Last Solid Date 08/07/21 Last Solid Time 21:00 Social Tobacco and No alcohol Exam alert, oriented x 3, clear to auscultation bilaterally and regular rate & rhythm Airway Submandibular: within normal limits Cervical ROM: within normal limits Mallampati: Class II Dentition: chipped History/ROS No significant history except as noted Anesthetic Plan ASA status: 2 Anesthesia: General Medications/Allergies Home Medications Medication Instructions Recorded Confirmed Last Taken Type hydrocodone 5 mg-acetaminophen 325 1 tab PO Q6H PRN #14 tab 08/02/21 08/07/21 Unknown Rx mg tablet ondansetron 4 mg disintegrating 4 mg PO Q8H PRN #10 tab 08/02/21 08/07/21 Unknown Rx tablet Allergies Allergy/AdvReac Type Severity Reaction Status Date / Time No Known Allergies Allergy Verified 08/07/21 07:55 Current Medications Generic Name Dose Route Start Last Admin Trade Name Freq PRN Reason Stop Dose Admin Sodium Chloride 1,000 mls @ 30 mls/hr 08/08/21 06:15 08/08/21 06:34 Sodium Chloride 0.9% IV 08/09/21 06:14 30 mls/hr .Q24H GHANSHYAM Administration Midazolam HCl 2 mg 08/08/21 06:04 08/08/21 06:51 Midazolam 1 Mg/Ml Inj 2 Ml IVP 2 mg Q5M PRN Administration Preop Anxiety PFSH Anesthesia Social History Smoking and tobacco status: current every day smoker Alcohol intake: current Alcohol intake frequency: few times a week Marital status: Single Current occupational status: employed 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
--- NOTE | 2021-08-08 07:38 | PM.OP ---
Operative Report Date of procedure: August 08, 2021 Pre-op diagnosis: Preop Diagnosis Refractory left distal ureteral stone Post-op diagnosis: Refractory left distal ureteral stone Procedure done: 1. Cystoscopy, LEFT retrograde ureteropyelogram 2. LEFT ureteroscopy, laser, stent (6 Maltese by 28 cm double-pigtail without string) Implants: Left ureteral stent Specimens removed/disposition: Stone fragment Pathology: Stone fragment Surgeon: Perla Anesthesia: General Estimated blood loss: Minimal Urine output: Not measured Complications: None Findings: Stent too large to pull out intact. Fragmented into pieces with laser and removed without difficulty. Left ureteral stent left indwelling. Brief History: Tania is a very pleasant 25-year-old white female with a recent diagnosis (March 2021) of a left distal ureteral stone with obstructive changes. She tried to pass a stone but did not. Missed several follow-up appointments and on the follow-up appointment recently the stone was still in place and was recommended that she go ahead and have the stone removed after very prolonged course of conservative management. Procedure: After routine preoperative evaluation examination and obtaining of informed consent she was taken to the operating suite on 08/08/2021 where general anesthesia was administered without difficulty after appropriate timeout was performed, SCDs confirmed to be functioning, preoperative antibiotics administered, beta-marley protocol confirmed. Prepped and draped in usual sterile fashion in dorsolithotomy position paying careful attention to avoiding pressure points. 21 Maltese cystoscope with 30 degree lens was introduced into the urethra meatus and advanced into the bladder under videoscopy. The bladder was systematically examined. No stones were seen. An 8 Maltese cone-tip catheter was intubated into the left ureteral orifice for LEFT RETROGRADE URETEROPYELOGRAM: The distal ureter for about a centimeter was normal. There was some narrow tortuosity of the ureter just above that and then a filling defect consistent with the stone proximal to the narrowed area. The ureter proximal above that was moderately dilated. A flexible tip guidewire was then easily advanced up the left ureter bypassing the stone curling in the area of the upper pole calyx. The distal ureter below the stone was dilated with a 15 Maltese 4 cm balloon with no waist. The wire was secured to the drapes as a safety wire and then a 7.5 Maltese offset semirigid ureteroscope was advanced up the left ureter next to the wire. The stone was encountered in the expected position. It was secured in grasping forceps but was felt to be too large to pull out intact and for that reason it was fragmented with a 200 ?m thulium superpulse laser fiber into couple pieces which were then removed with grasping forceps without difficulty. Final inspection showed no evidence of residual fragments. Based on the area of narrowing and inflammation it was decided to leave a stent indwelling. The cystoscope was then backloaded over the guidewire and a 6 Maltese by 28 cm double-pigtail stent was advanced over the guidewire through the cystoscope into appropriate position as confirmed via fluoroscopy and cystoscopy. Stent was confirmed to be draining. Bladder was drained. Stone was sent for pathologic evaluation and the procedure was completed. She was awakened in the operating room and returned to the recovery room in stable condition. PLANS: 1. Anticipate discharge from outpatient surgery today 2. We will follow-up early next week for cystoscopy and stent removal
[2021-08-08 07:52] VITALS: BP 137/94; PULSE 120; RESP 12; TEMP 36.3; O2SAT 100
[2021-08-08 07:57] VITALS: BP 129/74; PULSE 113; RESP 15; O2SAT 100
[2021-08-08 08:02] VITALS: BP 124/80; PULSE 118; RESP 16; O2SAT 98
[2021-08-08 08:07] VITALS: BP 142/79; PULSE 75; RESP 16; O2SAT 99
[2021-08-08 08:11] VITALS: BP 122/73; PULSE 77; RESP 16; TEMP 36.7; O2SAT 99
[2021-08-08] MEDS: ibuprofen 800 mg tablet PO (08:55)
--- NOTE | 2021-08-08 16:21 | ANE.PACU2 ---
Inpatient post-anesthesia follow up: Airway intact: Yes Vital signs: Temperature 98.0 F Pulse Rate 77 Respiratory Rate 16 Blood Pressure 122/73 Pulse Oximetry 99 Oxygen Delivery Me thod Room Air Oxygen Flow Rate 6 Fraction of Inspir ed Oxygen Hydration adequate: Yes Nausea and vomiting: No Pain level: 2 Mental status: Baseline
--- NOTE | 2021-08-09 | SCC_ITS ---
Procedure done: 1. Cystoscopy, LEFT retrograde ureteropyelogram 2. LEFT ureteroscopy, laser, stent (6 [place]ese by 28 cm double-pigtail without string) 40.5 seconds of fluoroscopic guidance, for a cumulative dose of 8.39 mGy, was provided to Dr. Duncan by the radiology department. C-arm images of the abdomen were saved for the patient's permanent record. [facility]
== END 2021-08-08 09:00 | disposition home or self-care (01) ==
PROVIDERS: PCP Family Medicine; Visit Provider Urology
PROC: 0TJB8ZZ Inspection of Bladder, Via Natural or Artificial Opening Endoscopic (ICD-10-PCS; CPT 52000; principal; 2021-08-08 07:00)
PROC: (CPT 74420; 2021-08-08 07:00)
PROC: 0TJ98ZZ Inspection of Ureter, Via Natural or Artificial Opening Endoscopic (ICD-10-PCS; CPT 52351; 2021-08-08 07:00)
PROC: (CPT 52356; 2021-08-08 07:00)
PROC: (CPT 50605; 2021-08-08 07:00)
DX: N20.1 Calculus of ureter (principal); F17.210 Nicotine dependence, cigarettes, uncomplicated
CPT/HCPCS: 52356; 76000; 81025; 82365; 88300; C2625; J1100; J1956; J2250; J2370; J2405; J2704; J2710; J3010; J3490; J7030

== ENCOUNTER → 2021-08-13 14:19 | Outpatient (BNVA) | payer MEDICAID, SELFPAY | PROVIDERS: PCP Family Medicine; Visit Provider Urology | DX: N20.1 Calculus of ureter (principal); Z96.0 Presence of urogenital implants | CPT/HCPCS: 87086 ==

== ENCOUNTER 2022-07-05 07:05 | Emergency (ER) | payer MEDICAID, SELFPAY ==
[2022-07-05 07:07] VITALS: BP 135/85; PULSE 105; RESP 16; TEMP 36.2; O2SAT 98
--- NOTE | 2022-07-05 07:19 | US_ITS ---
WS: [id number] Transabdominal and transvaginal PELVIC ULTRASOUND HISTORY: IUD complaint/check placement COMPARISON: None available. Uterus: 8.8 cm x 4.8 cm x 3.8 cm. Normal size and echogenicity. No fibroids are identified. Endometrium: 0.8 cm. Normal homogeneity and size. IUD appears appropriate position. There is no exten everett into the cervical canal. IUD tip ends 6 mm from the fundal portion of the endometrium. Right ovary: 3.2 cm x 3.1 cm x 1.9 cm; no solid or cystic mass. Small follicles. Normal vascularity. Left ovary: 2.9 cm x 3.1 cm x 1.8 cm; no solid or cystic mass. Small follicles. Normal vascularity. No free fluid in the cul-de-sac. US/US pelvic complete* [id number] IMPRESSION: 1. Normal position of IUD. 2. Otherwise negative.
--- NOTE | 2022-07-05 07:27 | ED_ITS ---
HPI - Female Genitourinary General: Chief complaint: Abdominal Pain Stated complaint: vaginal issues with IUD Time Seen by Provider: 07/05/22 07:14 History of Present Illness: Patient is a 26-year-old female comes to the ED with IUD complaint. IUD was placed approximately a little over 2 months ago. She is went 2 months without a menstrual period. patient was checking on her IUD to see if she can still feel the string and states that for the past couple days she has not been able to find it. For the past week patient says she has been having some cramping type pain that is on and off and nausea in the morning. She has been concerned that she might be and took 3 test at home and they were negative. Denies any fevers, vomiting, dysuria or hematuria. Associated symptoms: Reports nausea; Deny abdominal pain or headache(s) Review of Systems Const: Denies: fever(s), chills or fatigue Eyes: Denies: change in vision or eye discomfort ENMT: Denies: throat pain, odynophagia, nasal discharge or nasal congestion Card: Denies: chest pain, palpitations, edema, swelling of feet/ankles, dyspnea on exertion or orthopnea Resp: Denies: dyspnea, productive cough or non-productive cough GI: Reports: nausea and GI cramping; Denies: abdominal pain, vomiting, diarrhea, constipation or hematochezia : Denies: flank pain, dysuria or hematuria Musc: Denies: neck pain, back pain or extremity swelling Skin/Breast: Denies: rash or new lesions Neuro: Denies: headache(s), numbness in extremities or weakness in extremities [facility] ED PFSH: Medical History Left ureteral calculus 5 mm left 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 Mild obstructive changes. 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 Physical Exam Const: COMMON NORMALS: no acute distress, patient oriented x3 and alert HENMT: COMMON NORMALS: normocephalic HEAD & SCALP: normocephalic MOUTH: Normal oral and palatal mucosa present THROAT: posterior oropharynx normal and uvula midline Neck/C-Spine: COMMON NORMALS: supple GENERAL: Yes normal visual inspection Resp: COMMON NORMALS: normal respiratory effort, No retractions, No use of accessory muscles and clear to auscultation bilaterally AUSCULTATION: clear to auscultation bilaterally Cardio: COMMON NORMALS: regular rate, regular rhythm, S1 normal heart sound present, S2 normal heart sound present, No gallops present (Cardio), No clicks present (Cardio), No murmurs present (Cardio) and Peripheral pulses 2+ throughout RATE: regular rate RHYTHM: regular rhythm HEART SOUNDS: S1 normal heart sound present and S2 normal heart sound present PERIPHERAL PULSES: Peripheral pulses 2+ throughout GI: COMMON NORMALS: Normal to inspection, nondistended, normoactive bowel sounds present, Soft to palpation, non-tender and no masses PALPATION: Yes Soft to palpation : COMMON NORMALS: Yes no CVA tenderness BLADDER/KIDNEY EXAM: Yes no CVA tenderness Back/Pelvis: COMMON NORMALS: no CVA tenderness Extremity: COMMON NORMALS: normal to inspection Neuro: COMMON NORMALS: patient oriented x3 SENSORIUM/ORIENTATION: Yes alert GAIT: Yes Normal gait present Skin: GENERAL SKIN EXAM: dry skin Course Vital Signs: Vital signs: Vital Signs Temperature 97.2 F L 07/05/22 07:07 Pulse Rate 105 H 07/05/22 07:07 Respiratory Rate 16 07/05/22 07:07 Blood Pressure 135/85 07/05/22 07:07 Pulse Oximetry 98 07/05/22 07:07 Oxygen Delivery Me thod 07/05/22 07:07 [facility] - Female Medical Decision Making Patient is a 26-year-old female comes to the ED with IUD complaint. IUD was placed approximately a little over 2 months ago. She is went 2 months without a menstrual period. patient was checking on her IUD to see if she can still feel the string and states that for the past couple days she has not been able to find it. For the past week patient says she has been having some cramping type pain that is on and off and nausea in the morning. She has been concerned that she might be and took 3 test at home and they were negative. Denies any fevers, vomiting, dysuria or hematuria. Vitals are stable. Patient appears nontoxic in no acute distress or pain. UA unremarkable. Pelvic ultrasound showed normal position of IUD. Patient was stable for discharge ho nh. Patient was diagnosed with checking of intrauterine device. Told to follow-up with PCP within the next week for reevaluation. Patient was sent home with a prescription for Zofran. Return to ED precautions given. Patient understood and agreed with plan. Lab Data I reviewed the patient's lab results. Radiology Impressions Pelvis Ultrasound 07/05/22 07:19 IMPRESSION: 1. Normal position of IUD. 2. Otherwise negative. Laboratory Results HCG, Qual Negative (Negative) 07/05/22 07:34 Urine Color Yellow (Yellow) 07/05/22 07:34 Urine Appearance Clear (CLEAR) 07/05/22 07:34 Urine pH 5 (5-7) 07/05/22 07:34 Ur Specific [place] 1.020 (1.005-1.030) 07/05/22 07:34 Urine Protein Neg (Negative) 07/05/22 07:34 Urine Glucose (UA) Norm (Normal) 07/05/22 07:34 Urine Ketones Negative (Negative) 07/05/22 07:34 Urine Blood Neg (Negative) 07/05/22 07:34 Urine Nitrate Negative (Negative) 07/05/22 07:34 Urine Bilirubin Neg (Negative) 07/05/22 07:34 Urine Urobilinogen Norm mg/dL (Negative) 07/05/22 07:34 Ur Leukocyte Esterase Negative (Negative) 07/05/22 07:34 Discharge Plan Discharge Patient Disposition: Home Clinical Impression: Checking of intrauterine device Condition: Stable Prescriptions: New ondansetron 4 mg tablet,disintegrating 4 mg PO Q8H PRN (Reason: nausea and vomiting) Qty: 15 0RF No Action ondansetron 4 mg tablet,disintegrating 4 mg PO Q8H PRN (Reason: nausea and vomiting) Qty: 10 0RF Discharge Orders: Discharge ED (Routine); Ordered 07/05/22 Ordered By: Alf Hammond Referrals: Bhupinder Beckham MD [Primary Care Provider] - Discharge Diet: Regular Discharge Activity: Increase activity as tolerated Activity Restrictions/Additional Instructions: Follow-up with medical provider as directed in the next 5 to 7 days for reevaluation. take medications as prescribed. Return to the ER or your medical provider if condition worsens. Please read and understand discharge instructions. Thank you for choosing [facility] for your healthcare needs today. Please realize this is an emergency room and that we are providing you with a medical screening exam and this may not be complete and all inclusive of all the testing and or work up that you may need to determine your ailment or severity of your illness. It is very important that you follow up as instructed or that you return to the Emergency Department should you have concerns or if your condition changes or worsens in any way. Coding Level of Care Code ED Coordinator Of Placement for Sharyn Sky
[2022-07-05 07:45] LABS: Add Urine Microscopic? NO; Charge for UA Resulting for Rev
[2022-07-05 07:50] LABS: Bilirubin Urine Neg (Negative); Blood Urine Neg (Negative); Glucose Urine UA Norm (Normal); HCG Qualitative Urine. Negative (Negative); Ketones Urine Negative (Negative); Leukocyte Esterase Urine Negative (Negative); Nitrate Urine Negative (Negative); Protein Urine Neg (Negative); Urine Appearance Clear (CLEAR); Urine Color Yellow (Yellow); Urobilinogen Urine Norm (Negative); pH Urine 5 (5-7)
== END 2022-07-05 09:29 | disposition home or self-care (01) ==
PROVIDERS: Emergency Provider Physician Assistant; PCP Family Medicine
DX: Z30.431 Encounter for routine checking of intrauterine contraceptive device (principal); R11.0 Nausea; F17.200 Nicotine dependence, unspecified, uncomplicated
CPT/HCPCS: 76856; 81003; 81025; 99284

== ENCOUNTER 2023-05-21 18:48 | Emergency (ER) | payer MEDICAID, SELFPAY ==
[2023-05-21 19:03] VITALS: BP 154/108; PULSE 114; RESP 14; TEMP 36.6; O2SAT 98
[2023-05-21 19:19] LABS: HCG Qualitative Urine. Negative (Negative)
--- NOTE | 2023-05-21 19:23 | ED_ITS ---
HPI - Female Genitourinary General: Chief complaint: Urogenital-Female Stated complaint: burning with urination Time Seen by Provider: 05/21/23 18:54 History of Present Illness: 27-year-old female comes in with burning with urination for the last 3 days. Patient took 1 dose of Keflex prior to coming to the ER trying to hold out until tomorrow but due to increased pain and discomfort patient came into the ER. Patient has had recurrent urinary tract infections the last 6 months she reports 5. Patient had a history of 2 C-sections. Patient denies any other chronic medical problems or surgeries. 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 Mild obstructive changes. 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 Physical Exam Const: COMMON NORMALS: alert HENMT: COMMON NORMALS: normocephalic HEAD & SCALP: normocephalic Neck/C-Spine: COMMON NORMALS: full ROM Resp: COMMON NORMALS: normal respiratory effort and clear to auscultation bilaterally AUSCULTATION: clear to auscultation bilaterally Cardio: COMMON NORMALS: regular rate and regular rhythm RATE: regular rate RHYTHM: regular rhythm GI: COMMON NORMALS: Soft to palpation and non-tender PALPATION: Yes Soft to palpation Back/Pelvis: COMMON NORMALS: thoracic and lumbar spine normal to inspection Extremity: COMMON NORMALS: full ROM Neuro: SENSORIUM/ORIENTATION: Yes alert Skin: COMMON NORMALS: turgor normal GENERAL SKIN EXAM: turgor normal Course Vital Signs: Vital signs: Vital Signs Temperature 97.9 F 05/21/23 19:59 Pulse Rate 114 H 05/21/23 19:59 Respiratory Rate 14 05/21/23 19:59 Blood Pressure 154/108 05/21/23 19:59 Pulse Oximetry 98 05/21/23 19:59 MDM - Female Medical Decision Making 27-year-old female comes in today with urinary discomfort. On exam patient has some no CVA tenderness. Patient has some suprapubic tenderness to palpation. Abdomen soft nontender. Skin is warm and dry. Vital signs are normal except for some elevated blood pressure at 154 systolic and mild increase in pulse at 114. Differential diagnosis includes but not limited to urinary tract infection, pyelonephritis, renal calculi, dysuria. Urinalysis had a large amount of white blood cells in it with minimal squamous cells. Believe the patient most likely has a urinary tract infection cystitis. Patient was given 1 g of Rocephin and will follow-up with urology for further evaluation of recurrent UTI. Case management was requested to assist with the follow-up appointment. Lab Data Laboratory Results HCG, Qual Negative (Negative) 05/21/23 19:04 Urine Color Yellow (Yellow) 05/21/23 19:04 Urine Appearance Hazy (CLEAR) A 05/21/23 19:04 Urine pH 5 (5-7) 05/21/23 19:04 Ur Specific [place] 1.025 (1.005-1.030) 05/21/23 19:04 Urine Protein Trace (Negative) 05/21/23 19:04 Urine Glucose (UA) Norm (Normal) 05/21/23 19:04 Urine Ketones Negative (Negative) 05/21/23 19:04 Urine Blood 2+ (Negative) H 05/21/23 19:04 Urine Nitrate Negative (Negative) 05/21/23 19:04 Urine Bilirubin 1+ (Negative) H 05/21/23 19:04 Urine Urobilinogen 4 mg/dL (Negative) H 05/21/23 19:04 Ur Leukocyte Esterase 2+ (Negative) H 05/21/23 19:04 Urine RBC 5-10 /hpf (0-2) H 05/21/23 19:04 Urine WBC >100 /hpf (0-5) H 05/21/23 19:04 Ur Squamous Epith Cells 10-15 /hpf (0-5) H 05/21/23 19:04 Amorphous Sediment Not Reportable 05/21/23 19:04 Urine Bacteria Trace /hpf (NONE) 05/21/23 19:04 Urine Mucus 2+ /hpf 05/21/23 19:04 No radiology studies performed this visit Discharge Plan Discharge Patient Disposition: Home Clinical Impression: Cystitis Condition: Stable Prescriptions: New cefdinir 300 mg capsule 300 mg PO BID 10 Days Qty: 20 0RF No Action ondansetron 4 mg tablet,disintegrating 4 mg PO Q8H PRN (Reason: nausea and vomiting) Qty: 10 0RF ondansetron 4 mg tablet,disintegrating 4 mg PO Q8H PRN (Reason: nausea and vomiting) Qty: 15 0RF Discharge Orders: Discharge ED (Routine); Ordered 05/21/23 Ordered By: Leonid Bautista Referrals: Bhupinder Beckham MD [Primary Care Provider] - Discharge Diet: Usual diet Discharge Activity: Increase activity as tolerated Patient Instructions: Urinary Tract Infection in Women (ED) Activity Restrictions/Additional Instructions: Follow-up with primary care in 1 week for recheck. Follow-up with ANODE MACHINE OPERATOR or urologist for further evaluation of recurrent urinary tract infections. Return to ED for new concerns. Coding Level of Care Code ED Respiratory Care Specialist for Sharyn Sky
[2023-05-21 19:43] LABS: Urine Appearance Hazy (CLEAR); Urine Color Yellow (Yellow)
[2023-05-21 19:44] LABS: Add Urine Microscopic? YES; Bilirubin Urine 1+ (Negative); Blood Urine 2+ (Negative); Glucose Urine UA Norm (Normal); Ketones Urine Negative (Negative); Leukocyte Esterase Urine 2+ (Negative); Nitrate Urine Negative (Negative); Protein Urine Trace (Negative); Specific Gravity, Urine 1.025 (1.005-1.030); Urobilinogen Urine 4 mg/dL (Negative); pH Urine 5 (5-7)
[2023-05-21 19:48] LABS: Add Urine Culture? Yes; Bacteria Urine TRACE /hpf; Mucus Urine 2+ /hpf; WBC Urine >100 /hpf (0-5)
[2023-05-21] MEDS: cefTRIAXone 1,000 MG in water for injection-sterile 2.1 ML 2.1 MG IM (19:56)
[2023-05-21 19:59] VITALS: BP 154/108; PULSE 114; RESP 14; TEMP 36.6; O2SAT 98
--- NOTE | 2023-06-10 08:40 | DCPLANNER ---
Called Patient to get preferred Urology- Patient does not have VM set up - 06/10/23 0836 Second call.
== END 2023-05-21 20:05 | disposition home or self-care (01) ==
PROVIDERS: Emergency Medicine; Emergency Provider Nurse Practitioner Family; PCP Family Medicine
DX: N30.90 Cystitis, unspecified without hematuria (principal); Z72.0 Tobacco use
CPT/HCPCS: 81001; 81025; 87086; 96372; 99284; J0696

== ENCOUNTER 2023-08-20 09:18 | Emergency (ER) | payer MEDICAID, SELFPAY ==
[2023-08-20 09:36] VITALS: BP 134/90; PULSE 90; RESP 17; TEMP 36.7; O2SAT 100; BMI 30.7
[2023-08-20 10:48] LABS: Basophils % 0.6 %; Eosinophils # 0.1 10^3/uL (0.0-0.8); Eosinophils % 1.8 %; Lymphocytes # 1.1 10^3/uL (0.8-4.8); Lymphocytes % 15.6 %; Mean Corpuscular HGB Conc 33.9 g/dL (30-55); Mean Corpuscular Volume 97.3 fl (85-98); Mean Platelet Volume 10.5 fL (7.4-10.4); Monocytes # 0.9 10^3/uL (0.2-0.9); Monocytes % 12.6 %; Neutrophils # 4.66 10^3/uL (1.8-7.7); Neutrophils % 69.1 %; Nucleated Red Blood Cells % 0 %; Platelet Count 244 10^3/cmm (157-399); Red Blood Count 4.52 10^6/uL (3.85-5.65); Red Cell Distribution Width 13.5 % (12.1-15.1); White Blood Count 6.74 10^3/uL (3.29-11.43)
[2023-08-20 11:07] LABS: Alanine Aminotransferase 31 U/L (0-33); Albumin Level 4.2 g/dL (3.5-5.2); Alkaline Phosphatase 84 U/L (35-105); Anion Gap 12.5 (5-19); Aspartate Amino Transferase 37 U/L (0-32); Blood Urea Nitrogen 7 mg/dL (6-20); Calcium 8.9 mg/dL (8.5-10.5); Carbon Dioxide 27 mmol/L (22-29); Chloride 100 mmol/L (98-107); Creatinine Clr Calc Pharmacy 150.6695; Globulin 3.3 g/dL (1.3-4.6); Glomerular Filtration Rate 119.9 mL/min (90-130); Glucose 88 mg/dL (65-115); Osmolality Calculated 277 mOsm/kg (285-295); Potassium 4.5 mmol/L (3.5-5.1); Sodium 135 mmol/L (136-145); Total Bilirubin 0.3 mg/dL (0.15-1.2); Total Protein 7.5 g/dL (6.6-8.7)
--- NOTE | 2023-08-20 11:30 | W.ED.FEMALGU ---
HPI - Female Genitourinary General: Chief complaint: Urogenital-Female Stated complaint: N/V / dizzy Time Seen by Provider: 08/20/23 11:24 History of Present Illness: 27-year-old female presents emergency department complaints of left flank pain. She states she does have a history of kidney stones. She states that this been ongoing for the previous 4 or 5 days. She states her pain is a dull achy constant pain. She states she did have associated nausea without vomiting this morning. She states that she normally drinks soda and 7-8 beers a day and states that she attempted to drink water this morning became nauseated. She states she did feel slightly dizzy this morning but that is subsided. She denies difficulty with balance. She states her primary care provider is Dr. Allison and she has not seen him for this concern. She states her pain currently is a 3 out of 10. 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 Mild obstructive changes. 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 Skin: Warm, dry, Intact. Head: Normocephalic, atraumatic. Neck: Supple, trachea midline. Eye: Extraocular movements are intact. PERRLA Ears, nose, mouth and throat: mucosa moist. Cardiovascular: Regular, Normal peripheral perfusion. Respiratory: Lungs are clear to auscultation, respirations are non-labored, breath sounds are equal, Symmetrical chest wall expansion. Gastrointestinal: Soft, Nontender, Non distended, Normal bowel sounds. Musculoskeletal: Normal ROM, no deformity. Neurological: Alert and oriented, No focal neurological deficit observed. Psychiatric: Cooperative, appropriate mood & affect. Course Vital Signs: Vital signs: Vital Signs Temperature 98.1 F 08/20/23 09:36 Pulse Rate 90 08/20/23 09:36 Respiratory Rate 17 08/20/23 09:36 Blood Pressure 134/90 08/20/23 09:36 Pulse Oximetry 100 08/20/23 09:36 Oxygen Delivery Me thod Room Air 08/20/23 09:36 MDM - Female Medical Decision Making Physical exam completed and documented I did obtain a CBC and CMP which were essentially unremarkable. I did obtain urinalysis. Medical Records I reviewed the patient's medical records. Lab Data I reviewed the patient's lab results. 08/20/23 10:42 08/20/23 10:42 Laboratory Results WBC 6.74 10^3/uL (3.29-11.43) 08/20/23 10:42 RBC 4.52 10^6/uL (3.85-5.65) 08/20/23 10:42 Hgb 14.90 g/dL (11.27-16.99) 08/20/23 10:42 Hct 44.0 % (36-47) 08/20/23 10:42 MCV 97.3 fl (85-98) 08/20/23 10:42 MCH 33.0 pg (27-33) 08/20/23 10:42 MCHC 33.9 g/dL (30-55) 08/20/23 10:42 RDW 13.5 % (12.1-15.1) 08/20/23 10:42 Plt Count 244 10^3/cmm (157-399) 08/20/23 10:42 MPV 10.5 fL (7.4-10.4) H 08/20/23 10:42 Neut % (Auto) 69.1 % 08/20/23 10:42 Lymph % (Auto) 15.6 % 08/20/23 10:42 [place] % (Auto) 12.6 % 08/20/23 10:42 Eos % (Auto) 1.8 % 08/20/23 10:42 Baso % (Auto) 0.6 % 08/20/23 10:42 Neut # (Auto) 4.66 10^3/uL (1.8-7.7) 08/20/23 10:42 Lymph # (Auto) 1.1 10^3/uL (0.8-4.8) 08/20/23 10:42 [place] # (Auto) 0.9 10^3/uL (0.2-0.9) 08/20/23 10:42 Eos # (Auto) 0.1 10^3/uL (0.0-0.8) 08/20/23 10:42 Baso # (Auto) 0.0 10^3/uL (0.0-0.1) 08/20/23 10:42 Nucleated RBC % (auto) 0 % 08/20/23 10:42 Nucleated RBCs # 0.0 /100WBC 08/20/23 10:42 Sodium 135 mmol/L (136-145) L 08/20/23 10:42 Potassium 4.5 mmol/L (3.5-5.1) 08/20/23 10:42 Chloride 100 mmol/L (98-107) 08/20/23 10:42 Carbon Dioxide 27 mmol/L (22-29) 08/20/23 10:42 Anion Gap 12.5 (5-19) 08/20/23 10:42 BUN 7 mg/dL (6-20) 08/20/23 10:42 Creatinine 0.6 mg/dL (0.5-0.9) 08/20/23 10:42 GFR Calculation 119.9 mL/min (90-130) 08/20/23 10:42 Glucose 88 mg/dL (65-115) 08/20/23 10:42 Calculated Osmolality 277 mOsm/kg (285-295) L 08/20/23 10:42 Calcium 8.9 mg/dL (8.5-10.5) 08/20/23 10:42 Total Bilirubin 0.3 mg/dL (0.15-1.2) 08/20/23 10:42 AST 37 U/L (0-32) H 08/20/23 10:42 ALT 31 U/L (0-33) 08/20/23 10:42 Alkaline Phosphatase 84 U/L (35-105) 08/20/23 10:42 Total Protein 7.5 g/dL (6.6-8.7) 08/20/23 10:42 Albumin 4.2 g/dL (3.5-5.2) 08/20/23 10:42 Globulin 3.3 g/dL (1.3-4.6) 08/20/23 10:42 HCG, Qual Negative (Negative) 08/20/23 11:36 Urine Color Yellow (Yellow) 08/20/23 11:36 Urine Appearance Clear (CLEAR) 08/20/23 11:36 Urine pH 6.5 (5-7) 08/20/23 11:36 Ur Specific [place] 1.010 (1.005-1.030) 08/20/23 11:36 Urine Protein Neg (Negative) 08/20/23 11:36 Urine Glucose (UA) Norm (Normal) 08/20/23 11:36 Urine Ketones 1+ (Negative) H 08/20/23 11:36 Urine Blood Neg (Negative) 08/20/23 11:36 Urine Nitrate Negative (Negative) 08/20/23 11:36 Urine Bilirubin Neg (Negative) 08/20/23 11:36 Urine Urobilinogen Norm mg/dL (Negative) 08/20/23 11:36 Ur Leukocyte Esterase Negative (Negative) 08/20/23 11:36 No radiology studies performed this visit Discharge Plan Discharge Patient Disposition: Home Clinical Impression: Acute flank pain, Musculoskeletal back pain Condition: Stable Prescriptions: New naproxen 500 mg tablet 500 mg PO Q12H PRN (Reason: pain) Qty: 20 0RF No Action ondansetron 4 mg tablet,disintegrating 4 mg PO Q8H PRN (Reason: nausea and vomiting) Qty: 10 0RF ondansetron 4 mg tablet,disintegrating 4 mg PO Q8H PRN (Reason: nausea and vomiting) Qty: 15 0RF Discharge Orders: Discharge ED (Routine); Ordered 08/20/23 Ordered By: Jose Francisco Mao Referrals: Bhupinder Allison MD [Primary Care Provider] - Discharge Diet: Usual diet Discharge Activity: Resume usual activity Patient Instructions: Opioid Safety, Pain Management Activity Restrictions/Additional Instructions: Activity Restrictions/Additional Instructions: Thank you for choosing [facility] for your healthcare needs today. Please realize that you were seen in the Emergency Department and that we are providing you with an emergency medical screening exam and this may not be a complete and all inclusive of all the testing and or medical work-up that you may need to determine your ailment or severity of your illness. It is very important that you follow-up as instructed with your Primary care provider or Specialist for additional evaluation and to discuss your medical treatment plan. Coding Level of Care Code ED Canal Boat Captain for Sharyn Sky
[2023-08-20 11:42] LABS: Add Urine Microscopic? NO; Charge for UA Resulting for Rev
[2023-08-20 11:48] LABS: Bilirubin Urine Neg (Negative); Blood Urine Neg (Negative); Glucose Urine UA Norm (Normal); Ketones Urine 1+ (Negative); Leukocyte Esterase Urine Negative (Negative); Nitrate Urine Negative (Negative); Protein Urine Neg (Negative); Urine Appearance Clear (CLEAR); Urine Color Yellow (Yellow); Urobilinogen Urine Norm (Negative); pH Urine 6.5 (5-7)
[2023-08-20 11:50] LABS: HCG Qualitative Urine. Negative (Negative)
--- NOTE | 2023-08-20 11:59 | PC.NURSE ---
PER DR. AGUIAR PT OKAY TO BE DISCHARGED WITHOUT FLUIDS INFUSED.
== END 2023-08-20 12:10 | disposition home or self-care (01) ==
PROVIDERS: Family Medicine; Emergency Provider Internal Medicine; PCP Family Medicine
DX: R10.9 Unspecified abdominal pain (principal); M54.9 Dorsalgia, unspecified; Z72.0 Tobacco use; Z87.442 Personal history of urinary calculi
CPT/HCPCS: 36415; 80053; 81003; 81025; 85025; 99283

== ENCOUNTER 2023-09-01 18:27 | Emergency (ER) | payer MEDICAID, SELFPAY ==
[2023-09-01 18:32] VITALS: BP 139/86; PULSE 98; RESP 18; TEMP 37; O2SAT 99; BMI 30.7
[2023-09-01 18:57] VITALS: BP 146/86; PULSE 96; RESP 16; O2SAT 98
--- NOTE | 2023-09-01 19:09 | CTR_ITS ---
PROCEDURE INFORMATION: Exam: CT Abdomen And Pelvis Without Contrast Exam date and time: 09/01/2023 7:19 PM Age: 27 years old Clinical indication: Abdominal pain; Other: Bilateral flank; Prior surgery; Surgery date: 6+ months; Surgery type: Kidney stone removal left side; Additional info: Flank pain TECHNIQUE: Imaging protocol: Computed tomography of the abdomen and pelvis without contrast. Radiation optimization: All CT scans at this facility use at least one of these dose optimization techniques: automated exposure control; mA and/or kV adjustment per patient size (includes targeted exams where dose is matched to clinical indication); or iterative reconstruction. COMPARISON: CT kidney stone [id number] 08/02/2021 6:35 PM RADIATION DOSE METRICS: Total DLP (mGy-cm): 791 FINDINGS: Liver: Normal. No mass. Gallbladder and bile ducts: Normal. No calcified stones. No ductal dilation. Pancreas: Normal. No ductal dilation. Spleen: Normal. No splenomegaly. Adrenal glands: Normal. No mass. Kidneys and ureters: Normal. No hydronephrosis. Stomach and bowel: Unremarkable. No obstruction. No mucosal thickening. Appendix: No evidence of appendicitis. Intraperitoneal space: Unremarkable. No free air. No significant fluid collection. Vasculature: Unremarkable. No abdominal aortic aneurysm. Lymph nodes: Unremarkable. No enlarged lymph nodes. Urinary bladder: Unremarkable as visualized. Reproductive: There has an IUD in place. Bones/joints: Unremarkable. No acute fracture. Soft tissues: Unremarkable. CT/CT kidney stone [id number] IMPRESSION: 1. No bowel obstruction or inflammatory process associated with the bowel. 2. No free air or significant free fluid in the abdomen or pelvis. 3. No evidence of appendicitis. 4. No hydronephrosis or renal calculus. No stone in the bladder.
--- NOTE | 2023-09-01 19:11 | W.ED.BACK ---
Documented by User: JOELLEN Riddle 09/01/23 21:11 HPI - Back Pain/Injury General: Chief Complaint: Back Pain/Injury Stated Complaint: Kidney Pain Time Seen by Provider: 09/01/23 18:41 Source: patient Mode of arrival: ambulatory Limitations: no limitations History of Present Illness: Patient is a 27-year-old female who presents to the emergency department complaining of bilateral flank pain for the past 3 weeks. Patient recently was seen in the emergency department for the same issue, was diagnosed with musculoskeletal back pain and told to increase her fluid intake and take NSAIDs for pain. She notes that despite these treatments, she has had continuing pain and is becoming worse in the left side. She does note a history of kidney stones, but states this does not feel as severe. She is also denying any urinary symptoms at this time. She reports that the pain has been constant and is always aching and dull, though she has intermittent sharp pains. She is denying any radiation of the pain and states they are both to the bilateral flank area. The pain has not moved at all over the past 3 weeks. She denies any trauma or injuries. No chest pain, breathing difficulties, fevers, or any other symptoms at this time. No specific alleviating or exacerbating factors. MD elicited complaint: other (Bilateral flank pain) Onset (ago): week(s) (3) Timing: constant Similar Symptoms Previously: Yes Quality: sharp, dull and aching Location: left flank and right flank Radiation: none Exacerbating factors: none Relieving factors: none Associated symptoms: Reports no associated symptoms; Deny abdominal pain, chills, dysuria, fever(s), nausea, urinary urgency or vomiting Review of Systems General: Reports: 10 or more systems reviewed and unremarkable except in HPI and below Const: Denies: fever(s), chills, change in appetite, change in weight or diaphoresis ENMT: Denies: throat pain or hoarseness Card: Denies: chest pain, palpitations or lightheadedness Resp: Denies: dyspnea, productive cough or wheezing GI: Denies: abdominal pain, nausea, vomiting, diarrhea, constipation, bloating, change in stool character or hematochezia : Reports: flank pain (Bilateral); Denies: difficulty voiding, dysuria, urinary frequency or urinary urgency Musc: Denies: neck pain or back pain Skin/Breast: Denies: rash or new lesions Neuro: Denies: headache(s) or dizziness PFSH ED PFSH: Medical History No pertinent family history Urolithiasis Left ureteral calculus 5 mm left 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 Mild obstructive changes. 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 Physical Exam Const: COMMON NORMALS: no acute distress, average body habitus, patient oriented x3, no limitations, healthy appearing, alert and well nourished HENMT: COMMON NORMALS: normocephalic and atraumatic HEAD & SCALP: normocephalic and atraumatic Eye: COMMON NORMALS: EOMs intact bilaterally, conjunctivae normal and normal visual garcia by confrontation CONJUNCTIVA: Yes conjunctivae normal Neck/C-Spine: COMMON NORMALS: full ROM and supple Chest: COMMONS NORMALS: normal inspection of the chest Resp: COMMON NORMALS: normal respiratory effort, No use of accessory muscles and clear to auscultation bilaterally AUSCULTATION: clear to auscultation bilaterally Cardio: COMMON NORMALS: regular rate, regular rhythm, No gallops present (Cardio), No murmurs present (Cardio) and No rub (Cardio) RATE: regular rate RHYTHM: regular rhythm GI: COMMON NORMALS: Normal to inspection, nondistended, normoactive bowel sounds present, Soft to palpation and non-tender AUSCULTATION: Yes normoactive bowel sounds PALPATION: Yes Soft to palpation : COMMON NORMALS: Yes no CVA tenderness BLADDER/KIDNEY EXAM: Yes no CVA tenderness OTHER: Minimal reproducible tenderness palpation of the bilateral flanks, left worse than right Back/Pelvis: COMMON NORMALS: no CVA tenderness Extremity: COMMON NORMALS: normal to inspection and full ROM Neuro: COMMON NORMALS: patient oriented x3, moves all extremities, no focal motor deficits and no sensory deficits noted SENSORIUM/ORIENTATION: Yes alert Psych: COMMON NORMALS: mental status grossly normal Skin: COMMON NORMALS: no rashes or lesions noted GENERAL SKIN EXAM: no rashes or lesions noted Course Vital Signs: Vital signs: Vital Signs Temperature 98.6 F 09/01/23 18:32 Pulse Rate 97 09/01/23 21:10 Respiratory Rate 17 09/01/23 19:40 Blood Pressure 139/82 09/01/23 20:23 Pulse Oximetry 100 09/01/23 21:10 Oxygen Delivery Me thod Room Air 09/01/23 20:23 MDM - Back Pain/Injury Medical Decision Making Patient was seen for bilateral flank pain for the past few weeks. Was previously seen in the emergency department and diagnosed with musculoskeletal back pain. Did not have CT imaging at that time for kidney stones. Patient has no history of kidney stones. She has not having any urinary symptoms at this time. Basic lab work unremarkable for any signs of infection or kidney disease. Urinalysis does not reveal evidence of blood or infection. CT scan without contrast does not demonstrate any signs of kidney stone or other abnormal findings. I did offer patient medications in the emergency department as well as prescriptions to treat a musculoskeletal pain, to which she denies and states she will just follow-up with primary care and wanted to make sure her kidneys were okay. Return precautions were given and all other questions and concerns addressed at this time. Labs I reviewed the patient's lab results. 09/01/23 19:32 09/01/23 19:32 Radiology Impressions Abdomen/Pelvis CT 09/01/23 19:09 IMPRESSION: 1. No bowel obstruction or inflammatory process associated with the bowel. 2. No free air or significant free fluid in the abdomen or pelvis. 3. No evidence of appendicitis. 4. No hydronephrosis or renal calculus. No stone in the bladder. Laboratory Results WBC 10.12 10^3/uL (3.29-11.43) 09/01/23 19:32 RBC 4.50 10^6/uL (3.85-5.65) 09/01/23 19:32 Hgb 14.60 g/dL (11.27-16.99) 09/01/23 19:32 Hct 42.6 % (36-47) 09/01/23 19:32 MCV 94.7 fl (85-98) 09/01/23 19:32 MCH 32.4 pg (27-33) 09/01/23 19:32 MCHC 34.3 g/dL (30-55) 09/01/23 19:32 RDW 13.3 % (12.1-15.1) 09/01/23 19:32 Plt Count 287 10^3/cmm (157-399) 09/01/23 19:32 MPV 10.7 fL (7.4-10.4) H 09/01/23 19:32 Neut % (Auto) 62.9 % 09/01/23 19:32 Lymph % (Auto) 25.9 % 09/01/23 19:32 [place] % (Auto) 7.9 % 09/01/23 19:32 Eos % (Auto) 2.4 % 09/01/23 19:32 Baso % (Auto) 0.6 % 09/01/23 19:32 Neut # (Auto) 6.37 10^3/uL (1.8-7.7) 09/01/23 19:32 Lymph # (Auto) 2.6 10^3/uL (0.8-4.8) 09/01/23 19:32 [place] # (Auto) 0.8 10^3/uL (0.2-0.9) 09/01/23 19:32 Eos # (Auto) 0.2 10^3/uL (0.0-0.8) 09/01/23 19:32 Baso # (Auto) 0.1 10^3/uL (0.0-0.1) 09/01/23 19:32 Nucleated RBC % (auto) 0 % 09/01/23 19:32 Nucleated RBCs # 0.0 /100WBC 09/01/23 19:32 Sodium 136 mmol/L (136-145) 09/01/23 19:32 Potassium 3.7 mmol/L (3.5-5.1) 09/01/23 19:32 Chloride 100 mmol/L (98-107) 09/01/23 19:32 Carbon Dioxide 25 mmol/L (22-29) 09/01/23 19:32 Anion Gap 14.7 (5-19) 09/01/23 19:32 BUN 8 mg/dL (6-20) 09/01/23 19:32 Creatinine 0.6 mg/dL (0.5-0.9) 09/01/23 19:32 GFR Calculation 119.9 mL/min (90-130) 09/01/23 19:32 Glucose 85 mg/dL (65-115) 09/01/23 19:32 Calculated Osmolality 280 mOsm/kg (285-295) L 09/01/23 19:32 Calcium 8.5 mg/dL (8.5-10.5) 09/01/23 19:32 Total Bilirubin 0.7 mg/dL (0.15-1.2) 09/01/23 19:32 AST 41 U/L (0-32) H 09/01/23 19:32 ALT 40 U/L (0-33) H 09/01/23 19:32 Alkaline Phosphatase 87 U/L (35-105) 09/01/23 19:32 Total Protein 7.6 g/dL (6.6-8.7) 09/01/23 19:32 Albumin 4.2 g/dL (3.5-5.2) 09/01/23 19:32 Globulin 3.4 g/dL (1.3-4.6) 09/01/23 19:32 Urine Color Yellow (Yellow) 09/01/23 19:25 Urine Appearance Clear (CLEAR) 09/01/23 19:25 Urine pH 6 (5-7) 09/01/23 19:25 Ur Specific Mobile 1.010 (1.005-1.030) 09/01/23 19:25 Urine Protein Neg (Negative) 09/01/23 19:25 Urine Glucose (UA) Norm (Normal) 09/01/23 19:25 Urine Ketones 2+ (Negative) H 09/01/23 19:25 Urine Blood Neg (Negative) 09/01/23 19:25 Urine Nitrate Negative (Negative) 09/01/23 19:25 Urine Bilirubin Neg (Negative) 09/01/23 19:25 Urine Urobilinogen Norm mg/dL (Negative) 09/01/23 19:25 Ur Leukocyte Esterase Negative (Negative) 09/01/23 19:25 All radiology interpretation(s) finalized by discharge Discharge Plan Discharge Patient Disposition: Home Clinical Impression: Musculoskeletal back pain Condition: Stable Prescriptions: No Action ondansetron 4 mg tablet,disintegrating 4 mg PO Q8H PRN (Reason: nausea and vomiting) Qty: 10 0RF naproxen 500 mg tablet 500 mg PO Q12H PRN (Reason: pain) Qty: 20 0RF ondansetron 4 mg tablet,disintegrating 4 mg PO Q8H PRN (Reason: nausea and vomiting) Qty: 15 0RF Discharge Orders: Discharge ED (Routine); Ordered 09/01/23 Ordered By: Guido Gandara Referrals: Bhupinder Beckham MD [Primary Care Provider] - Discharge Diet: Usual diet Discharge Activity: Increase activity as tolerated Patient Instructions: Opioid Safety, Pain Management Activity Restrictions/Additional Instructions: Plenty of fluids. Follow-up with primary care as discussed. Monitor for any new or concerning symptoms you may have and return for reevaluation. 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 Mild obstructive changes. 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 Was previously seen in the emergency department and diagnosed with musculoskeletal back pain. Did not have CT imaging at that time for kidney stones. Patient has no history of kidney stones. She has not having any urinary symptoms at this time. Basic lab work unremarkable for any signs of infection or kidney disease. Urinalysis does not reveal evidence of blood or infection. CT scan without contrast does not demonstrate any signs of kidney stone or other abnormal findings. I did offer patient medications in the emergency department as well as prescriptions to treat a musculoskeletal pain, to which she denies and states she will just follow-up with primary care and wanted to make sure her kidneys were okay. Return precautions were given and all other questions and concerns addressed at this time. Chart reviewed Labs 09/01/23 19:32 09/01/23 19:32 Radiology Impressions Abdomen/Pelvis CT 09/01/23 19:09 IMPRESSION: 1. No bowel obstruction or inflammatory process associated with the bowel. 2. No free air or significant free fluid in the abdomen or pelvis. 3. No evidence of appendicitis. 4. No hydronephrosis or renal calculus. No stone in the bladder. Laboratory Results WBC 10.12 10^3/uL (3.29-11.43) 09/01/23 19:32 RBC 4.50 10^6/uL (3.85-5.65) 09/01/23 19:32 Hgb 14.60 g/dL (11.27-16.99) 09/01/23 19:32 Hct 42.6 % (36-47) 09/01/23 19:32 MCV 94.7 fl (85-98) 09/01/23 19:32 MCH 32.4 pg (27-33) 09/01/23 19:32 MCHC 34.3 g/dL (30-55) 09/01/23 19:32 RDW 13.3 % (12.1-15.1) 09/01/23 19:32 Plt Count 287 10^3/cmm (157-399) 09/01/23 19:32 MPV 10.7 fL (7.4-10.4) H 09/01/23 19:32 Neut % (Auto) 62.9 % 09/01/23 19:32 Lymph % (Auto) 25.9 % 09/01/23 19:32 Barron % (Auto) 7.9 % 09/01/23 19:32 Eos % (Auto) 2.4 % 09/01/23 19:32 Baso % (Auto) 0.6 % 09/01/23 19:32 Neut # (Auto) 6.37 10^3/uL (1.8-7.7) 09/01/23 19:32 Lymph # (Auto) 2.6 10^3/uL (0.8-4.8) 09/01/23 19:32 [place] # (Auto) 0.8 10^3/uL (0.2-0.9) 09/01/23 19:32 Eos # (Auto) 0.2 10^3/uL (0.0-0.8) 09/01/23 19:32 Baso # (Auto) 0.1 10^3/uL (0.0-0.1) 09/01/23 19:32 Nucleated RBC % (auto) 0 % 09/01/23 19:32 Nucleated RBCs # 0.0 /100WBC 09/01/23 19:32 Sodium 136 mmol/L (136-145) 09/01/23 19:32 Potassium 3.7 mmol/L (3.5-5.1) 09/01/23 19:32 Chloride 100 mmol/L (98-107) 09/01/23 19:32 Carbon Dioxide 25 mmol/L (22-29) 09/01/23 19:32 Anion Gap 14.7 (5-19) 09/01/23 19:32 BUN 8 mg/dL (6-20) 09/01/23 19:32 Creatinine 0.6 mg/dL (0.5-0.9) 09/01/23 19:32 GFR Calculation 119.9 mL/min (90-130) 09/01/23 19:32 Glucose 85 mg/dL (65-115) 09/01/23 19:32 Calculated Osmolality 280 mOsm/kg (285-295) L 09/01/23 19:32 Calcium 8.5 mg/dL (8.5-10.5) 09/01/23 19:32 Total Bilirubin 0.7 mg/dL (0.15-1.2) 09/01/23 19:32 AST 41 U/L (0-32) H 09/01/23 19:32 ALT 40 U/L (0-33) H 09/01/23 19:32 Alkaline Phosphatase 87 U/L (35-105) 09/01/23 19:32 Total Protein 7.6 g/dL (6.6-8.7) 09/01/23 19:32 Albumin 4.2 g/dL (3.5-5.2) 09/01/23 19:32 Globulin 3.4 g/dL (1.3-4.6) 09/01/23 19:32 Urine Color Yellow (Yellow) 09/01/23 19:25 Urine Appearance Clear (CLEAR) 09/01/23 19:25 Urine pH 6 (5-7) 09/01/23 19:25 Ur Specific Mobile 1.010 (1.005-1.030) 09/01/23 19:25 Urine Protein Neg (Negative) 09/01/23 19:25 Urine Glucose (UA) Norm (Normal) 09/01/23 19:25 Urine Ketones 2+ (Negative) H 09/01/23 19:25 Urine Blood Neg (Negative) 09/01/23 19:25 Urine Nitrate Negative (Negative) 09/01/23 19:25 Urine Bilirubin Neg (Negative) 09/01/23 19:25 Urine Urobilinogen Norm mg/dL (Negative) 09/01/23 19:25 Ur Leukocyte Esterase Negative (Negative) 09/01/23 19:25 Discharge Plan Discharge Patient Disposition: Home Clinical Impression: Musculoskeletal back pain Condition: Stable Prescriptions: No Action ondansetron 4 mg tablet,disintegrating 4 mg PO Q8H PRN (Reason: nausea and vomiting) Qty: 10 0RF naproxen 500 mg tablet 500 mg PO Q12H PRN (Reason: pain) Qty: 20 0RF ondansetron 4 mg tablet,disintegrating 4 mg PO Q8H PRN (Reason: nausea and vomiting) Qty: 15 0RF Discharge Orders: Discharge ED (Routine); Ordered 09/01/23 Ordered By: Guido Gandara Referrals: Bhupinder Beckham MD [Primary Care Provider] - Discharge Diet: Usual diet Discharge Activity: Increase activity as tolerated Patient Instructions: Opioid Safety, Pain Management Activity Restrictions/Additional Instructions: Plenty of fluids. Follow-up with primary care as discussed. Monitor for any new or concerning symptoms you may have and return for reevaluation. Coding Level of Care Code ED Directional Drill Operator for Sharyn Sky
[2023-09-01 19:28] VITALS: PULSE 97; RESP 17; O2SAT 99
[2023-09-01 19:40] VITALS: BP 149/82; PULSE 98; RESP 17; O2SAT 99
[2023-09-01 19:44] LABS: Add Urine Microscopic? NO; Charge for UA Resulting for Rev
[2023-09-01 19:46] LABS: Basophils # 0.1 10^3/uL (0.0-0.1); Basophils % 0.6 %; Eosinophils # 0.2 10^3/uL (0.0-0.8); Eosinophils % 2.4 %; Hematocrit 42.6 % (36-47); Lymphocytes # 2.6 10^3/uL (0.8-4.8); Lymphocytes % 25.9 %; Mean Corpuscular HGB Conc 34.3 g/dL (30-55); Mean Corpuscular Hemoglobin 32.4 pg (27-33); Mean Corpuscular Volume 94.7 fl (85-98); Mean Platelet Volume 10.7 fL (7.4-10.4); Monocytes # 0.8 10^3/uL (0.2-0.9); Monocytes % 7.9 %; Neutrophils # 6.37 10^3/uL (1.8-7.7); Neutrophils % 62.9 %; Nucleated Red Blood Cells % 0 %; Platelet Count 287 10^3/cmm (157-399); Red Cell Distribution Width 13.3 % (12.1-15.1); White Blood Count 10.12 10^3/uL (3.29-11.43)
[2023-09-01 20:06] LABS: Bilirubin Urine Neg (Negative); Blood Urine Neg (Negative); Glucose Urine UA Norm (Normal); Ketones Urine 2+ (Negative); Leukocyte Esterase Urine Negative (Negative); Nitrate Urine Negative (Negative); Protein Urine Neg (Negative); Urine Appearance Clear (CLEAR); Urine Color Yellow (Yellow); Urobilinogen Urine Norm (Negative); pH Urine 6 (5-7)
[2023-09-01 20:14] LABS: Alanine Aminotransferase 40 U/L (0-33); Albumin Level 4.2 g/dL (3.5-5.2); Alkaline Phosphatase 87 U/L (35-105); Anion Gap 14.7 (5-19); Aspartate Amino Transferase 41 U/L (0-32); Blood Urea Nitrogen 8 mg/dL (6-20); Calcium 8.5 mg/dL (8.5-10.5); Carbon Dioxide 25 mmol/L (22-29); Chloride 100 mmol/L (98-107); Creatinine Clr Calc Pharmacy 150.6695; Globulin 3.4 g/dL (1.3-4.6); Glomerular Filtration Rate 119.9 mL/min (90-130); Glucose 85 mg/dL (65-115); Osmolality Calculated 280 mOsm/kg (285-295); Potassium 3.7 mmol/L (3.5-5.1); Sodium 136 mmol/L (136-145); Total Bilirubin 0.7 mg/dL (0.15-1.2); Total Protein 7.6 g/dL (6.6-8.7)
[2023-09-01 20:23] VITALS: BP 139/82; PULSE 90; O2SAT 99
[2023-09-01 21:10] VITALS: PULSE 97; O2SAT 100
== END 2023-09-01 21:11 | disposition home or self-care (01) ==
PROVIDERS: Emergency Provider Physician Assistant; PCP Family Medicine
DX: M54.50 Low back pain, unspecified (principal); Z72.0 Tobacco use
CPT/HCPCS: 36415; 74176; 80053; 81003; 85025; 99284

== ENCOUNTER 2023-10-31 13:33 | Emergency (ER) | payer MEDICAID, SELFPAY ==
--- NOTE | 2023-10-31 13:33 | ECG_ITS ---
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 Measurements Intervals [place] Rate: 90 P: 52 W[place]: 134 QRS: 58 QRSD: 81 T: 31 QT: 334 QTc: 411 Interpretive Statements SINUS RHYTHM No previous ECG available for comparison Electronically Signed On 10-31-2023 18:40:02 CDT by Raphael Belcher M.D. [id number]
[2023-10-31 13:40] VITALS: PULSE 98; RESP 16; TEMP 36.1; O2SAT 99
--- NOTE | 2023-10-31 13:41 | XRR_ITS ---
PROCEDURE INFORMATION: Exam: XR Chest Exam date and time: 10/31/2023 2:00 PM Age: 27 years old Clinical indication: Pain; Angina pectoris; Additional info: Cp TECHNIQUE: Imaging protocol: Radiologic exam of the chest. Views: 1 view. COMPARISON: CT kidney stone [id number] 09/01/2023 7:19 PM FINDINGS: Lungs: Unremarkable. No consolidation or mass. Pleural spaces: Unremarkable. No pleural effusion. No pneumothorax. Heart/Mediastinum: Unremarkable. No cardiomegaly. Bones/joints: Unremarkable. XR/XR chest 1V portable [id number] IMPRESSION: No acute findings.
--- NOTE | 2023-10-31 16:05 | PC.NURSE ---
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
--- NOTE | 2023-10-31 16:19 | ED_ITS ---
HPI - Chest Pain 2 General: Chief Complaint: Chest Pain Stated Complaint: CP Time Seen by Provider: 10/31/23 15:59 Source: patient Mode of arrival: ambulatory Limitations: no limitations History of Present Illness: Patient is a 27-year-old female presents to ED today with complaint of chest pain and shortness of breath. She states symptoms only happen when she gets worked up reporting instances when her kids are yelling/screaming/requiring discipline/etc. She has also noticed it when she is outside doing yard work or flowering. She does feel like symptoms are present with exertion. She states symptoms have been episodic over the past 4 to 5 months. She reportedly contacted her primary care office today who instructed her to come to the emergency department. She denies palpitations. She does feel like sometimes her heart races although she is never actually checked her pulse. She arrives here in no acute distress with stable vital signs. MD complaint: chest pain Onset (ago): month(s) Timing of current episode: episodic Prior episodes: Yes Onset: during exertion and other (when she gets worked up ) Pain location: substernal Pain radiation: none Severity: moderate Quality: tightness and heaviness Relieving factors: rest Exacerbating factors: exertion and stress Associated symptoms: Reports dyspnea; Deny abdominal pain, fever(s), nausea, palpitations, syncope or vomiting Treatment prior to arrival: none Risk Factors: Coronary artery disease risk factors: none Thoracic aortic dissection risk factors: none Related Data: On Oral Contraceptives: No Review of Systems 2 Const: Denies: fever(s), chills, body aches, fatigue or malaise Card: Reports: chest pain and dyspnea on exertion; Denies: palpitations, irregular heart rhythm, edema, swelling of feet/ankles, lightheadedness, syncope, pre-syncope, orthopnea, leg pain with exertion or acrocyanosis Resp: Reports: dyspnea; Denies: productive cough, non-productive cough, wheezing, stridor, pain on inspiration, change in phlegm color, hemoptysis or chest congestion GI: Denies: abdominal pain, nausea, vomiting or diarrhea Musc: Denies: neck pain, back pain, extremity pain or joint pain Skin/Breast: Denies: rash Neuro: Denies: headache(s), numbness in extremities, weakness in extremities, sensory changes or dizziness Psych: Reports: anxiety PFSH ED 2 PFSH: Medical History No pertinent family history Urolithiasis Left ureteral calculus 5 mm left 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 Mild obstructive changes. 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 Physical Exam 2 Const: COMMON NORMALS: no acute distress, average body habitus, patient oriented x3, no limitations, healthy appearing, alert and well nourished G ENERAL APPEARANCE: cooperative Neck/C-Spine: COMMON NORMALS: no JVD Chest: COMMONS NORMALS: normal inspection of the chest and normal palpation of entire chest wall Resp: COMMON NORMALS: normal respiratory effort and clear to auscultation bilaterally AUSCULTATION: clear to auscultation bilaterally Cardio: COMMON NORMALS: no JVD, regular rate and regular rhythm RATE: r egular rate RHYTHM: regular rhythm GI: COMMON NORMALS: Normal to inspection, nondistended, normoactive bowel sounds present, Soft to palpation and non-tender PALPATION: Yes Soft to palpation Extremity: COMMON NORMALS: no clubbing, cyanosis or edema, no calf tenderness and no pedal edema GENERAL: Yes normal exam except as noted Neuro: COMMON NORMALS: patient oriented x3, moves all extremities, no focal motor deficits and no sensory deficits noted SENSORIUM/ORIENTATION: Yes alert Skin: COMMON NORMALS: no rashes or lesions noted GENERAL SKIN EXAM: no rashes or lesions noted Course 2 Vital Signs: Vital signs: Vital Signs Temperature 97 F L 10/31/23 13:40 Pulse Rate 63 10/31/23 18:18 Respiratory Rate 17 10/31/23 18:18 Blood Pressure 123/68 10/31/23 18:18 Pulse Oximetry 99 10/31/23 18:18 Oxygen Delivery Me thod Room Air 10/31/23 16:30 MDM - Chest Pain Medical Decision Making Workup here including CXR, EKG, blood work including baseline troponin, D-dimer all unremarkable. Recommend she follow-up with her primary care provider. Return ED precautions given. Medical Records I reviewed the patient's medical records. Lab Data I reviewed the patient's lab results. 10/31/23 16:45 10/31/23 16:45 Radiology Impressions Chest X-Ray 10/31/23 13:41 IMPRESSION: No acute findings. Laboratory Results WBC 11.36 10^3/uL (3.29-11.43) 10/31/23 16:45 RBC 4.67 10^6/uL (3.85-5.65) 10/31/23 16:45 Hgb 15.40 g/dL (11.27-16.99) 10/31/23 16:45 Hct 45.4 % (36-47) 10/31/23 16:45 MCV 97.2 fl (85-98) 10/31/23 16:45 MCH 33.0 pg (27-33) 10/31/23 16:45 MCHC 33.9 g/dL (30-55) 10/31/23 16:45 RDW 12.8 % (12.1-15.1) 10/31/23 16:45 Plt Count 259 10^3/cmm (157-399) 10/31/23 16:45 MPV 11.0 fL (7.4-10.4) H 10/31/23 16:45 Neut % (Auto) 68.7 % 10/31/23 16:45 Lymph % (Auto) 22.0 % 10/31/23 16:45 [place] % (Auto) 7.4 % 10/31/23 16:45 Eos % (Auto) 1.1 % 10/31/23 16:45 Baso % (Auto) 0.5 % 10/31/23 16:45 Neut # (Auto) 7.80 10^3/uL (1.8-7.7) H 10/31/23 16:45 Lymph # (Auto) 2.5 10^3/uL (0.8-4.8) 10/31/23 16:45 [place] # (Auto) 0.8 10^3/uL (0.2-0.9) 10/31/23 16:45 Eos # (Auto) 0.1 10^3/uL (0.0-0.8) 10/31/23 16:45 Baso # (Auto) 0.1 10^3/uL (0.0-0.1) 10/31/23 16:45 Nucleated RBC % (auto) 0 % 10/31/23 16:45 Nucleated RBCs # 0.0 /100WBC 10/31/23 16:45 D-Dimer <= 0.27 ug/mLFEU (0-0.59) 10/31/23 16:45 Sodium 136 mmol/L (136-145) 10/31/23 16:45 Potassium 4.5 mmol/L (3.5-5.1) 10/31/23 16:45 Chloride 99 mmol/L (98-107) 10/31/23 16:45 Carbon Dioxide 25 mmol/L (22-29) 10/31/23 16:45 Anion Gap 16.5 (5-19) 10/31/23 16:45 BUN 10 mg/dL (6-20) 10/31/23 16:45 Creatinine 0.6 mg/dL (0.5-0.9) 10/31/23 16:45 GFR Calculation 119.9 mL/min (90-130) 10/31/23 16:45 Glucose 78 mg/dL (65-115) 10/31/23 16:45 Calculated Osmolality 280 mOsm/kg (285-295) L 10/31/23 16:45 Calcium 9.3 mg/dL (8.5-10.5) 10/31/23 16:45 Total Bilirubin 0.5 mg/dL (0.15-1.2) 10/31/23 16:45 AST 23 U/L (0-32) 10/31/23 16:45 ALT 31 U/L (0-33) 10/31/23 16:45 Alkaline Phosphatase 79 U/L (35-105) 10/31/23 16:45 Troponin T Baseline < 6 ng/L (0-10) 10/31/23 16:45 Total Protein 7.0 g/dL (6.6-8.7) 10/31/23 16:45 Albumin 4.4 g/dL (3.5-5.2) 10/31/23 16:45 Globulin 2.6 g/dL (1.3-4.6) 10/31/23 16:45 All radiology interpretation(s) finalized by discharge Discharge Plan Discharge Patient Disposition: Home Clinical Impression: Atypical chest pain Condition: Stable Prescriptions: No Action ondansetron 4 mg tablet,disintegrating 4 mg PO Q8H PRN (Reason: nausea and vomiting) Qty: 10 0RF naproxen 500 mg tablet 500 mg PO Q12H PRN (Reason: pain) Qty: 20 0RF ondansetron 4 mg tablet,disintegrating 4 mg PO Q8H PRN (Reason: nausea and vomiting) Qty: 15 0RF Discharge Orders: Discharge ED (Routine); Ordered 10/31/23 Ordered By: Joie Bauer Patient Instructions: Chest Pain (ED) Coding Level of Care Code ED Light Armored Reconnaissance Officer for Sharyn Sky
[2023-10-31 16:30] VITALS: BP 129/81; PULSE 74; RESP 19; O2SAT 99
[2023-10-31 16:54] LABS: Basophils # 0.1 10^3/uL (0.0-0.1); Basophils % 0.5 %; Eosinophils # 0.1 10^3/uL (0.0-0.8); Eosinophils % 1.1 %; Hematocrit 45.4 % (36-47); Lymphocytes # 2.5 10^3/uL (0.8-4.8); Mean Corpuscular HGB Conc 33.9 g/dL (30-55); Mean Corpuscular Volume 97.2 fl (85-98); Monocytes # 0.8 10^3/uL (0.2-0.9); Monocytes % 7.4 %; Neutrophils % 68.7 %; Nucleated Red Blood Cells % 0 %; Platelet Count 259 10^3/cmm (157-399); Red Blood Count 4.67 10^6/uL (3.85-5.65); Red Cell Distribution Width 12.8 % (12.1-15.1); White Blood Count 11.36 10^3/uL (3.29-11.43)
[2023-10-31 17:15] LABS: D Dimer <= 0.27 ug/mLFEU (0-0.59)
[2023-10-31 17:16] LABS: Troponin(5th) Baseline < 6 ng/L (0-10)
[2023-10-31 17:17] LABS: Alanine Aminotransferase 31 U/L (0-33); Albumin Level 4.4 g/dL (3.5-5.2); Alkaline Phosphatase 79 U/L (35-105); Anion Gap 16.5 (5-19); Aspartate Amino Transferase 23 U/L (0-32); Blood Urea Nitrogen 10 mg/dL (6-20); Calcium 9.3 mg/dL (8.5-10.5); Carbon Dioxide 25 mmol/L (22-29); Chloride 99 mmol/L (98-107); Creatinine Clr Calc Pharmacy 155.9132; Globulin 2.6 g/dL (1.3-4.6); Glomerular Filtration Rate 119.9 mL/min (90-130); Glucose 78 mg/dL (65-115); Osmolality Calculated 280 mOsm/kg (285-295); Potassium 4.5 mmol/L (3.5-5.1); Sodium 136 mmol/L (136-145); Total Bilirubin 0.5 mg/dL (0.15-1.2)
[2023-10-31 18:18] VITALS: BP 123/68; PULSE 63; RESP 17; O2SAT 99
== END 2023-10-31 18:18 | disposition home or self-care (01) ==
PROVIDERS: Emergency Provider Physician Assistant
DX: R07.89 Other chest pain (principal); F17.210 Nicotine dependence, cigarettes, uncomplicated; Z79.899 Other long term (current) drug therapy
CPT/HCPCS: 71045; 80053; 84484; 85025; 85378; 93005; 99285

== ENCOUNTER 2024-08-07 14:41 | Emergency (ER) | payer MEDICAID, SELFPAY ==
[2024-08-07 15:04] VITALS: BP 149/83; PULSE 100; RESP 14; TEMP 36.8; O2SAT 100
--- NOTE | 2024-08-07 15:39 | XRR_ITS ---
PROCEDURE INFORMATION: Exam: XR Abdomen Exam date and time: 08/07/2024 3:49 PM Age: 28 years old Clinical indication: Abdominal pain; Prior surgery; Surgery date: 6+ months; Surgery type: Csection x 2; Lower abd pain; Constipation TECHNIQUE: Imaging protocol: Radiologic exam of the abdomen. Views: Frontal supine view of the abdomen. 1 View. COMPARISON: CT kidney stone [id number] 09/01/2023 7:19 PM FINDINGS: Gastrointestinal tract: Moderate colonic stool burden. No bowel dilation. Bones/joints: Unremarkable. XR/XR abdomen 1V* [id number] IMPRESSION: Moderate colonic stool burden.
--- NOTE | 2024-08-07 15:46 | W.ED.ABDPA2 ---
HPI - Abdominal Pain General: Chief Complaint: Abdominal Pain Stated Complaint: abd pain Time Seen by Provider: 08/07/24 15:39 History of Present Illness: This is a healthy 28-year-old female presents emergency room with lower abdominal pain. This started today. Fairly minor at times but then with some sharp pains. She says this is in her lower abdomen with sharp pains more to the left. She says she is been feeling bubbly sensations . She had some nausea earlier. No vomiting. No dysuria. No fevers. Related Data Previous Rx's ?Medication ?Instructions ?Recorded cefdinir 300 mg capsule 300 mg PO BID 5 days #10 caps 08/07/24 magnesium citrate 296 ml PO ONCE #296 mL 08/07/24 polyethylene glycol 3350 17 17 g PO DAILY #510 grams 08/07/24 gram/dose oral powder (Miralax) Allergies Allergy/AdvReac Type Severity Reaction Status Date / Time No Known Allergies Allergy Verified 08/07/24 15:07 Review of Systems Narrative: Constitutional symptoms: Negative except as documented in HPI. Skin symptoms: Negative except as documented in HPI. Eye symptoms: Negative except as documented in HPI. ENMT symptoms: Negative except as documented in HPI. Respiratory symptoms: Negative except as documented in HPI. Cardiovascular symptoms: Negative except as documented in HPI. Gastrointestinal symptoms: Negative except as documented in HPI. Genitourinary symptoms: Negative except as documented in HPI. Musculoskeletal symptoms: Negative except as documented in HPI. Neurologic symptoms: Negative except as documented in HPI. Psychiatric symptoms: Negative except as documented in HPI. Endocrine symptoms: Negative except as documented in HPI. 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 Mild obstructive changes. 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 Skin: Warm, dry. Head: Normocephalic, atraumatic. Neck: Supple, trachea midline. Eye: Extraocular movements are intact. Ears, nose, mouth and throat: mucosa moist. Cardiovascular: Regular, Normal peripheral perfusion. Respiratory: Lungs are clear to auscultation, respirations are non-labored, breath sounds are equal, Symmetrical chest wall expansion. Gastrointestinal: Soft, some very mild tenderness in the lower abdomen to palpation, Non distended Musculoskeletal: Normal ROM, no deformity. Neurological: Alert and oriented, No focal neurological deficit observed. Psychiatric: Cooperative, appropriate mood & affect. Course Vital Signs: Vital signs: Vital Signs Temperature 98.3 F 08/07/24 15:04 Pulse Rate 100 08/07/24 15:04 Respiratory Rate 14 08/07/24 15:04 Blood Pressure 149/83 08/07/24 15:04 Pulse Oximetry 100 08/07/24 15:04 Oxygen Delivery Me thod Room Air 08/07/24 15:04 MDM - Abdominal Pain Medical Decision Making Medical decision making: Differential diagnosis including but not limited to and based on the above HPI, review of systems and physical exam: Lower abdominal pain is diffuse and not severe. Likely constipation given her stool history. Also concern for UTI given suprapubic pain. Orders placed to evaluate differential diagnosis based on the above differential, HPI and physical exam X-ray of the abdomen: Moderate stool burden, likely constipation. This was reviewed and interpreted by myself the emergency room physician. I also reviewed the radiology report. Lab Review: Laboratory results were reviewed and interpreted by myself the emergency room physician. Mild leukocytosis. No anemia. No renal failure. Patient does have a bit of urinary tract infection with 11-20 whites and 1+ bacteria. I reviewed the patient's medical record. Reexamination: Patient remained stable. No increased work of breathing. No altered mental status. No focal motor deficits. Assessment and plan: Abdominal pain Constipation Urinary tract infection - Discharged home - Discussed findings and plan with patient. Answered any questions. - All laboratory values were reviewed and interpreted personally by myself, the ER physician - All imaging was reviewed and interpreted personally by myself, the ER physician. - Evaluation and treatment of this problem were appropriate in the emergency setting Lab Data 08/07/24 16:01 08/07/24 16:01 Labs/Radiology: Radiology Impressions Abdomen X-Ray 08/07/24 15:39 IMPRESSION: Moderate colonic stool burden. Laboratory Results WBC 11.54 10^3/uL (3.29-11.43) H 08/07/24 16:01 RBC 5.01 10^6/uL (3.85-5.65) 08/07/24 16:01 Hgb 16.40 g/dL (11.27-16.99) 08/07/24 16:01 Hct 47.9 % (36-47) H 08/07/24 16:01 MCV 95.6 fl (85-98) 08/07/24 16: MCH 32.7 pg (27-33) 08/07/24 16: MCHC 34.2 g/dL (30-55) 08/07/24 16:01 RDW 13.0 % (12.1-15.1) 08/07/24 16: Plt Count 245 10^3/cmm (157-399) 08/07/24 16:01 MPV 10.9 fL (7.4-10.4) H 08/07/24 16:01 Neut % (Auto) 65.3 % 08/07/24 16:01 Lymph % (Auto) 24.8 % 08/07/24 16:01 Mccormick % (Auto) 7.9 % 08/07/24 16:01 Eos % (Auto) 1.2 % 08/07/24 16: Baso % (Auto) 0.5 % 08/07/24 16:01 Neut # (Auto) 7.54 10^3/uL (1.8-7.7) 08/07/24 16:01 Lymph # (Auto) 2.9 10^3/uL (0.8-4.8) 08/07/24 16:01 Mccormick # (Auto) 0.9 10^3/uL (0.2-0.9) 08/07/24 16:01 Eos # (Auto) 0.1 10^3/uL (0.0-0.8) 08/07/24 16:01 Baso # (Auto) 0.1 10^3/uL (0.0-0.1) 08/07/24 16:01 Nucleated RBC % (auto) 0 % 08/07/24 16:01 Nucleated RBCs # 0.0 /100WBC 08/07/24 16:01 Sodium 135 mmol/L (136-145) L 08/07/24 16:01 Potassium 4.3 mmol/L (3.5-5.1) 08/07/24 16:01 Chloride 101 mmol/L (98-107) 08/07/24 16:01 Carbon Dioxide 23 mmol/L (22-29) 08/07/24 16:01 Anion Gap 15.3 (5-19) 08/07/24 16:01 BUN 7 mg/dL (6-20) 08/07/24 16:01 Creatinine 0.6 mg/dL (0.5-0.9) 08/07/24 16:01 GFR Calculation 119.0 mL/min (90-130) 08/07/24 16:01 Glucose 89 mg/dL (65-115) 08/07/24 16: Calculated Osmolality 277 mOsm/kg (285-295) L 08/07/24 16:01 Calcium 8.7 mg/dL (8.5-10.5) 08/07/24 16: Total Bilirubin 0.5 mg/dL (0.15-1.2) 08/07/24 16:01 AST 16 U/L (0-32) 08/07/24 16:01 ALT 16 U/L (0-33) 08/07/24 16:01 Alkaline Phosphatase 71 U/L (35-105) 08/07/24 16:01 Total Protein 7.3 g/dL (6.6-8.7) 08/07/24 16:01 Albumin 4.2 g/dL (3.5-5.2) 08/07/24 16: Globulin 3.1 g/dL (1.3-4.6) 08/07/24 16:01 HCG, Qual Negative (Negative) 08/07/24: Urine Color Dark yellow (Yellow) A 08/07/24 Urine Appearance Clear (CLEAR) 08/07/24: Urine pH 6 (5-7) 08/07/24 Ur Specific [place] 1.010 (1.005-1.030) 08/07/24 Urine Protein Neg (Negative) 08/07/24 Urine Glucose (UA) Norm (Normal) 08/07/24 Urine Ketones Negative (Negative) 08/07/24 Urine Blood Neg (Negative) 04/12/25 15:29 Urine Nitrate Negative (Negative) 08/07/24 15:29 Urine Bilirubin Neg (Negative) 08/07/24 15:29 Urine Urobilinogen 1 mg/dL (Negative) H 08/07/24 15:29 Ur Leukocyte Esterase Negative (Negative) 08/07/24 15:29 Urine RBC 0-2 /hpf (0-2) 08/07/24 15:29 Urine WBC 11-20 /hpf (0-5) H 08/07/24 15:29 Ur Squamous Epith Cells 6-10 /hpf (0-5) 08/07/24 15:29 Amorphous Sediment Not Reportable 08/07/24 15:29 Urine Bacteria 1+ /hpf (NONE) H 08/07/24 15: Hyaline Casts 2.46 /lpf 08/07/24 15:29 All radiology interpretation(s) finalized by discharge Discharge Plan Discharge Patient Disposition: Home Clinical Impression: Constipation, Urinary tract infection Condition: Stable Prescriptions: New magnesium citrate Solution 296 ml PO ONCE Qty: 296 0RF polyethylene glycol 3350 [Miralax] 17 gram/dose powder 17 g PO DAILY Qty: 510 0RF Rx Instructions: Take 1-2 scoops daily for the next 3 months to keep stools soft cefdinir 300 mg capsule 300 mg PO BID 5 Days Qty: 10 0RF Discharge Orders: Discharge ED (Routine); Ordered 08/07/24 Ordered By: Arelis Fontaine Referrals: Lola Moulton FNP [Primary Care Provider] - Discharge Diet: Usual diet Discharge Activity: Increase activity as tolerated Patient Instructions: Constipation (ED), Urinary Tract Infection in Women (DC), Opioid Safety, Pain Management Activity Restrictions/Additional Instructions: Thank you for choosing [facility] for your healthcare needs today. Please realize this is an emergency room and that we are providing you with a medical screening exam and this may not be complete and all inclusive of all the testing and or work up that you may need to determine your ailment or severity of your illness. You have been screened and evaluated and felt safe for discharge. Health conditions do change or evolve sometimes and as such it is important that you follow up with your Primary Doctor to be re checked, 3-5 days is a general good time frame for follow up. You are always welcome to return to the ED for re assessment if your symptoms are worsening or you have new concerns Print Language: Hungarian Coding Level of Care Code ED Wallpaper Printer Helper for Sharyn Sky
[2024-08-07 15:47] LABS: HCG Qualitative Urine. Negative (Negative)
[2024-08-07 16:06] LABS: Basophils # 0.1 10^3/uL (0.0-0.1); Basophils % 0.5 %; Eosinophils # 0.1 10^3/uL (0.0-0.8); Eosinophils % 1.2 %; Hematocrit 47.9 % (36-47); Lymphocytes # 2.9 10^3/uL (0.8-4.8); Lymphocytes % 24.8 %; Mean Corpuscular HGB Conc 34.2 g/dL (30-55); Mean Corpuscular Hemoglobin 32.7 pg (27-33); Mean Corpuscular Volume 95.6 fl (85-98); Mean Platelet Volume 10.9 fL (7.4-10.4); Monocytes # 0.9 10^3/uL (0.2-0.9); Monocytes % 7.9 %; Neutrophils # 7.54 10^3/uL (1.8-7.7); Neutrophils % 65.3 %; Nucleated Red Blood Cells % 0 %; Platelet Count 245 10^3/cmm (157-399); Red Blood Count 5.01 10^6/uL (3.85-5.65); White Blood Count 11.54 10^3/uL (3.29-11.43)
[2024-08-07 16:22] LABS: Alanine Aminotransferase 16 U/L (0-33); Albumin Level 4.2 g/dL (3.5-5.2); Alkaline Phosphatase 71 U/L (35-105); Anion Gap 15.3 (5-19); Aspartate Amino Transferase 16 U/L (0-32); Blood Urea Nitrogen 7 mg/dL (6-20); Calcium 8.7 mg/dL (8.5-10.5); Carbon Dioxide 23 mmol/L (22-29); Chloride 101 mmol/L (98-107); Creatinine Clr Calc Pharmacy 151.3354; Globulin 3.1 g/dL (1.3-4.6); Glucose 89 mg/dL (65-115); Osmolality Calculated 277 mOsm/kg (285-295); Potassium 4.3 mmol/L (3.5-5.1); Sodium 135 mmol/L (136-145); Total Bilirubin 0.5 mg/dL (0.15-1.2); Total Protein 7.3 g/dL (6.6-8.7)
[2024-08-07 16:24] LABS: Bilirubin Urine Neg (Negative); Blood Urine Neg (Negative); Glucose Urine UA Norm (Normal); Ketones Urine Negative (Negative); Leukocyte Esterase Urine Negative (Negative); Nitrate Urine Negative (Negative); Protein Urine Neg (Negative); Urine Appearance Clear (CLEAR); Urine Color Dark Yellow (Yellow); Urobilinogen Urine 1 mg/dL (Negative); pH Urine 6 (5-7)
[2024-08-07 16:27] LABS: Bacteria Urine 1+ /hpf; Hyaline Casts Urine 2.46 /lpf; RBC Urine 0-2 /hpf (0-2)
[2024-08-07 16:57] VITALS: BP 130/81; PULSE 83; O2SAT 99
--- NOTE | 2024-08-07 16:59 | PC.NURSE ---
ATTEMPTED TO CALL PATIENT AND PATIENTS MOTHER ON CONTACT LIST TO NOTIFY THAT SHE LEFT HER WALLET IN ROOM UPON DC. PATIENT DID NOT ANSWER, NO ANSWER FROM MOTHER. WILL GIVE WALLET TO SECURITY TO LOCK UP.
== END 2024-08-07 17:01 | disposition home or self-care (01) ==
PROVIDERS: Emergency Provider Emergency Medicine; PCP Nurse Practitioner Family
DX: K59.00 Constipation, unspecified (principal); N39.0 Urinary tract infection, site not specified
CPT/HCPCS: 36415; 74018; 80053; 81001; 81025; 85025; 99283